=== PATIENT | female | born 1945 | race Caucasian/White ===

== ENCOUNTER → 2017-12-26 12:57 | Outpatient (CLI) | payer MEDICARE, OTHER, SELFPAY ==
--- NOTE | 2017-12-26 | DI.MG.S_ITS ---
BILATERAL DIGITAL DIAGNOSTIC MAMMOGRAM: 12/26/2017 CLINICAL: Diffuse left breast pain. Family history of breast cancer. Comparison is made to exams dated: 11/25/2016 mammogram, 11/24/2015 mammogram, and 11/19/2014 mammogram - [facility]. There are scattered fibroglandular elements in both breasts. No significant masses, calcifications, or other findings are seen in either breast. IMPRESSION: NEGATIVE There is no abnormality seen in either breast to correspond with the patient's diffuse bilateral breast pain, however, clinical followup is recommended. There is no mammographic evidence of malignancy. A 1 year screening mammogram is recommended. This exam was interpreted at Station ID: [id number]. NOTE: For mammograms, a report in lay terms will be sent to the patient. Approximately 15% of breast malignancies will not be visualized mammographically. In the management of a palpable breast mass, a negative mammogram must not discourage biopsy of a clinically suspicious lesion. Electronically Signed By: Bruce cox/:12/26/2017 14:24:45 letter sent: Clinical Evaluation ACR BI-RADS Category 1: Negative 3341F
== END ==
PROVIDERS: Family Provider Family Medicine; Visit Provider Family Medicine
DX: N64.4 Mastodynia (principal); Z80.3 Family history of malignant neoplasm of breast
CPT/HCPCS: 77066; G0279

== ENCOUNTER → 2018-08-23 11:03 | Outpatient (CLI) | payer MEDICARE, OTHER, SELFPAY ==
--- NOTE | 2018-08-23 | DI.RAD.S_ITS ---
PROCEDURE: XR KNEE RT 3V INDICATIONS: PAIN IN RIGHT KNEE TECHNIQUE: 3 views of the knee were acquired. COMPARISON: [facility], , KNEE 3V RIGHT, 09/10/2008, 16:14. FINDINGS: Bones: No fractures or dislocations. No suspicious bony lesions. Soft tissues: No joint effusion. No suspicious soft tissue calcifications. There is a soft tissue density over the medial aspect of the knee, new since the last x-ray on 09/10/2008. IMPRESSION: A soft tissue density over the medial aspect of the knee new since the last exam. If clinical symptoms persist or clinical suspicion for internal derangement is high, MRI is suggested for further evaluation. Dictated by: Edward Mondragon M.D. on 08/23/2018 at 14:31 Approved by: Edward Mondragon M.D. on 08/23/2018 at 14:34
== END ==
PROVIDERS: PCP Family Medicine; Visit Provider Family Medicine
DX: M25.561 Pain in right knee (principal)
CPT/HCPCS: 73562

== ENCOUNTER → 2019-02-04 12:44 | Outpatient (CLI) | payer MEDICARE, OTHER, SELFPAY ==
--- NOTE | 2019-02-04 12:49 | DI.MG.S_ITS ---
BILATERAL DIGITAL SCREENING MAMMOGRAM 3D/2D WITH CAD: 02/04/2019 CLINICAL: Routine screening. Family history of breast cancer. Comparison is made to exams dated: 12/26/2017 mammogram, 11/25/2016 mammogram, 11/24/2015 mammogram, and 11/19/2014 mammogram - [facility]. There are scattered fibroglandular elements in both breasts. Current study was also evaluated with a Computer Aided Detection (CAD) system. No significant masses, calcifications, or other findings are seen in either breast. There has been no significant interval change. IMPRESSION: NEGATIVE There is no mammographic evidence of malignancy. A 1 year screening mammogram is recommended. This exam was interpreted at Station ID: [id number]. NOTE: For mammograms, a report in lay terms will be sent to the patient. Approximately 15% of breast malignancies will not be visualized mammographically. In the management of a palpable breast mass, a negative mammogram must not discourage biopsy of a clinically suspicious lesion. Electronically Signed By: Juan Francisco peres/mallory:02/04/2019 18:41:40 letter sent: Normal Exam ACR BI-RADS Category 1: Negative 3341F
== END ==
PROVIDERS: Visit Provider Student in an Organized Health Care Education/Training Program
DX: Z12.31 Encounter for screening mammogram for malignant neoplasm of breast (principal); Z80.3 Family history of malignant neoplasm of breast
CPT/HCPCS: 77063; 77067

== ENCOUNTER 2019-02-20 18:09 | Emergency (ER) | payer MEDICARE, OTHER, SELFPAY ==
[2019-02-20 18:11] VITALS: BP 135/68; PULSE 70; RESP 18; TEMP 36.9; O2SAT 17
--- NOTE | 2019-02-20 18:54 | ED.WEAKNESS ---
HPI - Weakness General Chief complaint: Weakness Stated complaint: Weakness Time Seen by Provider: 02/20/19 18:12 Source: patient Mode of arrival: ambulatory Limitations: no limitations History of Present Illness HPI Narrative: Patient comes emergency department via EMS after being stuck at [facility] for several hours this afternoon, waiting for a tow truck, after her car broke down. Patient states that she has chronic dizziness and imbalance, secondary to inner ear issues and cochlear implants. She states that when she got out of her car, she has lost her balance and fell to the ground. She states she did not hurt her extremities. She did bump her head, but does not think that she lost consciousness. Patient denies any nausea or vomiting. She states she feels a little lightheaded at this time. No chest pain or shortness of breath. Patient waited for several hours in the toe tract did not show up, and finally, a ranger came along and was concerned about the patient being stuck in the hot weather in her car and called EMS. Patient does note that she did not drink any water this afternoon, because she did not have any bathroom available, should she need to relieve herself. Patient states she was feeling fine when she got up this morning. Patient states she is under lot of stress lately because her of 50 years left her for her best friend. She states that she has not been able to get a hold of anybody to help her, though she has left messages. Related Data Home Medications Medication Instructions Recorded Confirmed [CALTRATE] 500 mg PO QDAY #0 01/21/10 10/02/18 [NEERAJ-C] 500 mg PO QDAY #0 01/21/10 10/02/18 [FISH OIL] 1,000 mg PO TID #0 01/21/10 10/02/18 MULTIVITAMIN (Multivitamin 1 cap PO EVERY DAY #0 01/25/10 10/02/18 -) [GLUCOSAMINE] 1,500 mg PO QDAY #0 01/25/10 10/02/18 mirabegron [Myrbetriq] 50 mg PO #0 06/24/17 10/02/18 estradiol [Estrace] 0.01 % VAGINAL HS #0 07/25/17 10/02/18 ibandronate [Boniva] 150 mg OR QMONTH #0 07/25/17 10/02/18 Lactobacillus acidophilus capsule 100 mg PO DAILY 03/21/18 10/02/18 cholecalciferol (vitamin D3) 2,000 2,000 unit PO DAILY 03/21/18 10/02/18 unit capsule levothyroxine 75 mcg tablet 75 mcg PO DAILY 03/21/18 10/02/18 valacyclovir 500 mg tablet 1,000 mg PO DAILY 10/02/18 10/02/18 Previous Rx's Medication Instructions Recorded bupropion HCl XL 300 mg 24 hr 300 mg PO AMCC #90 tab 06/20/18 tablet, extended release lamotrigine 200 mg tablet 200 mg PO DAILY #90 tab 06/20/18 trazodone 50 mg tablet 100 mg PO HS #180 tab 06/20/18 hydroxyzine HCl 25 mg tablet 25 mg PO BEDTIME PRN #90 tab 10/24/18 Allergies Allergy/AdvReac Type Severity Reaction Status Date / Time No Known Drug Allergies Allergy Unverified 10/24/18 10:54 Review of Systems Constitutional Denies chills, Denies fever(s), Denies lethargy and Denies weakness Eyes Denies change in vision, Denies eye discharge, Denies irritation and Denies loss of vision ENT Ears, Nose, Mouth, and Throat: Denies change in voice, Denies neck pain and Denies sore throat Cardiovascular Denies chest pain, Denies irregular heart rhythm, Reports lightheadedness, Denies palpitations, Denies dyspnea, Denies dyspnea on exertion and Denies orthopnea Respiratory Denies cough, Denies dyspnea, Denies dyspnea on exertion and Denies wheezing Gastrointestinal Gastrointestinal: Denies abdominal pain, Denies change in bowel habits, Denies diarrhea, Denies nausea and Denies vomiting Genitourinary Denies hematuria, Denies flank pain, Denies urinary incontinence and Denies urinary urgency Musculoskeletal Denies neck pain Integumentary/Breasts Denies pruritus, Denies erythema, Denies rash and Denies wounds Neurologic Denies confusion, Denies loss of vision and Denies weakness Psychiatric Denies anxiety, Denies confusion, Denies depression, Denies homicidal ideation and Denies suicidal ideation Endocrine Denies palpitations Hematologic/Lymphatic Denies easy bruising Allergic/Immunologic Denies wheezing [facility] Medical History Herpes (Chronic) Hypothyroidism (Chronic) Bipolar II disorder (Chronic) Social History Smoking Status: Never smoker Social History Smoking Status: Never smoker Exam Initial Vital Signs Initial Vital Signs: Vital Signs Temperature 98.4 F 02/20/19 18:11 Pulse Rate 70 02/20/19 18:11 Respiratory Rate 18 02/20/19 18:11 Blood Pressure 135/68 02/20/19 18:11 Pulse Oximetry 17 L 02/20/19 18:11 Const General: cooperative and well developed Nutritional Appearance: well nourished Orientation: alert, awake, oriented x3 and not confused HENMA Head: normocephalic and atraumatic Ears: external ears normal Nose: external nose normal and No nasal discharge Face and sinus: face symmetric and No dry mucous membranes Mouth: oral mucosae normal and moist mucous membranes Teeth and gingiva: dentition normal Eyes General: appearance normal, both eyes and all related structures Eyelids: eyelids normal Conjunctivae: conjunctivae normal Sclera: sclerae normal Pupils: PERRL EOM: EOM intact bilaterally Neck Neck: normal visual inspection, trachea midline, No lymphadenopathy, No midline deformity and No JVD Lymphatic: No lymphedema Chest Chest: normal inspection of the chest Resp Effort & Inspection: normal respiratory effort, able to speak in complete sentences, no respiratory distress and no use of accessory muscles Auscultation: clear to auscultation bilaterally, no rales, no rhonchi and no wheezes Cardio Rate: regular rate Rhythm: regular rhythm Heart Sounds: no click, no gallops, no murmurs and no rubs Pulses: normal peripheral pulses GI Inspection: non-distended Palpation: soft, no hepatosplenomegaly, No guarding, No pulsatile mass and No tender Auscultation: normal bowel sounds Back/Spine/Pelvis Back: No CVA tenderness Cervical Spine: cervical ROM normal and No pain with cervical ROM Thoracic/Lumbar Spine: thoracic and lumbar spine normal to inspection Skin General: no rashes or lesions noted, No jaundice and No petechiae Neuro General: alert, oriented x3, gait normal and no focal motor deficits Speech: speech normal Extrem General: full ROM, no clubbing, cyanosis or edema, no pedal edema and no calf tenderness Psych Appearance: well kempt Mental Status: mental status grossly normal Attitude: cooperative Thought Content: normal and suicidality Judgment: judgment good Course Course Narrative: The patient was treated with IV fluids, after which she reported feeling much much better. The patient did not have any other complaints and had not been ill in any way, and I did not feel further, more extensive workup was indicated. The patient has had no deterioration whatsoever while in the emergency department. We discussed home fluid intake, as well as the usual indications for return or follow-up. Orders Ordered: Discontinued Medications Sodium Chloride (Normal Saline 0.9%) 1,000 mls @ 1,000 mls/hr IV BOLUS ONE Stop: 02/20/19 19:40 Last Infusion: 02/20/19 20:50 Dose: 0 mls/hr Admin: 02/20/19 19:05 Dose: 1,000 mls/hr Vital Signs - 8 hr 02/20/19 18:11 Temperature 98.4 F Pulse Rate 70 Respiratory Rate 18 Blood Pressure 135/68 Pulse Oximetry 17 L MDM - Weakness Medical Records Attestation: I reviewed the patient's medical records. Discharge Plan Departure Patient Disposition: Home Clinical Impression: Dehydration Discharge Date/Time: 02/20/19 21:25 Interventions: ED Discharge Assessment Last Done: 02/20/19 21:24 Instructions: DI for Dehydration -- Adult Prescriptions: No Action levothyroxine [Levoxyl] 75 mcg tablet 75 mcg PO DAILY RF: 0 Lactobacillus acidophilus [Acidophilus] capsule 100 mg PO DAILY RF: 0 cholecalciferol (vitamin D3) 2,000 unit capsule 2,000 unit PO DAILY RF: 0 bupropion HCl [Wellbutrin XL] 300 mg tablet extended release 24 hr 300 mg PO AMCC Qty: 90 RF: 3 lamotrigine 200 mg tablet 200 mg PO DAILY Qty: 90 RF: 3 trazodone 50 mg tablet 100 mg PO HS Qty: 180 RF: 3 hydroxyzine HCl 25 mg tablet 25 mg PO BEDTIME PRN (Reason: insomnia) Qty: 90 RF: 3 [NEERAJ-C] 500 mg PO QDAY Qty: 0 RF: 0 [CALTRATE] 500 mg PO QDAY Qty: 0 RF: 0 [FISH OIL] 1,000 mg PO TID Qty: 0 RF: 0 MULTIVITAMIN (Multivitamin -) 1 cap PO EVERY DAY Qty: 0 RF: 0 [GLUCOSAMINE] 1,500 mg PO QDAY Qty: 0 RF: 0 mirabegron [Myrbetriq] 50 MG tablet extended release 24 hr 50 mg PO Qty: 0 RF: 0 ibandronate [Boniva] 150 MG tablet 150 mg OR QMONTH Qty: 0 RF: 0 estradiol [Estrace] 0.01 % cream 0.01 % Vaginal HS Qty: 0 RF: 0 valacyclovir 500 mg tablet 1,000 mg PO DAILY RF: 0 Referrals: [facility] [Provider Group]
[2019-02-20 19:00] VITALS: BP 141/66; PULSE 63; O2SAT 100
[2019-02-20] MEDS: SODIUM CHLORIDE 0.9% 1,000 ML 1000 ML IV (19:05)
[2019-02-20 21:19] VITALS: BP 156/64; PULSE 66; RESP 17; O2SAT 100
== END 2019-02-20 21:25 | disposition home or self-care (01) ==
PROVIDERS: Emergency Provider Emergency Medicine
DX: E86.0 Dehydration (principal)
CPT/HCPCS: 36591; 96360; 96361; 99283; 99284

== ENCOUNTER → 2019-09-12 14:08 | Outpatient (CLI) | payer MEDICARE, OTHER, SELFPAY ==
--- NOTE | 2019-09-12 | DI.RAD.S_ITS ---
PROCEDURE: XR LUMBAR SPINE 2-3V INDICATIONS: LBP, LEFT HIP PAIN WITH RADICULOPATHY TECHNIQUE: 2 views of the lumbar spine were acquired. COMPARISON: None. FINDINGS: Bones: No fracture or focal osseous destruction. However, evaluation limited by severe spondylitic changes. Multilevel degenerative endplate sclerosis and spurring. Diffuse facet arthropathy. Grade 1 retrolisthesis of L2 on L3, and L4 on L5. Grade 1 anterolisthesis of L5 on S1. Severe diffuse narrowing of the lumbar disc spaces. Levoscoliosis noted centered at L2. Soft tissues: Overlying bowel gas pattern is normal. No suspicious soft tissue calcifications. IMPRESSION: Levoscoliosis and severe lumbar spondylosis, and facet arthropathy Multilevel spondylolisthesis as above. Dictated by: Benitez Gomez M.D. on 09/12/2019 at 15:49 Approved by: Benitez Gomez M.D. on 09/12/2019 at 15:51
--- NOTE | 2019-09-12 | DI.RAD.S_ITS ---
PROCEDURE: XR HIP W PEL IF DONE LT MIN 4V INDICATIONS: LBP, LEFT HIP PAIN WITH RADICULOPATHY TECHNIQUE: AP pelvis with lateral view(s) of the right and left hip(s). COMPARISON: [facility], CT, CHEST ABDOMEN PELVIS WITH CONTRAST, 07/11/2008, 10:37. FINDINGS: Bones: No fractures or dislocations. Pelvic ring appears intact. Nonspecific 1 cm sclerotic lesion projecting in the left intertrochanteric femur, which was present on 07/11/08. Lower lumbar spondylosis. Sacroiliac joints grossly intact. Mild bilateral hip degeneration. Soft tissues: The visualized bowel gas pattern is normal. No suspicious soft tissue calcifications. IMPRESSION: Mild bilateral hip degeneration. Lower lumbar spondylosis and facet disease. Dictated by: Benitez Gomez M.D. on 09/12/2019 at 15:43 Approved by: Benitez Gomez M.D. on 09/12/2019 at 15:49
== END ==
PROVIDERS: Referring Provider Student in an Organized Health Care Education/Training Program; Visit Provider Student in an Organized Health Care Education/Training Program
DX: M54.5 Low back pain (principal); M25.552 Pain in left hip; M47.26 Other spondylosis with radiculopathy, lumbar region; M16.0 Bilateral primary osteoarthritis of hip; M43.16 Spondylolisthesis, lumbar region; M43.17 Spondylolisthesis, lumbosacral region; M41.86 Other forms of scoliosis, lumbar region
CPT/HCPCS: 72100; 73522

== ENCOUNTER → 2019-09-26 11:09 | Outpatient (CLI) | payer MEDICARE, OTHER, SELFPAY ==
--- NOTE | 2019-09-26 | DI.CT.S_ITS ---
PROCEDURE: CT LUMBAR SPINE WO CON INDICATIONS: Radiculopathy, lumbar region TECHNIQUE: Noncontrast 3 mm thick sections acquired from the T12 level to the sacrum. Sagittal and coronal reformats were constructed. For radiation dose reduction, the following was used: automated exposure control. COMPARISON: , CT, CHEST ABDOMEN PELVIS WITH CONTRAST, 07/11/2008, 10:37. , CR, XR LUMBAR SPINE 2-3V, 09/12/2019, 14:22. FINDINGS: Image quality: Excellent. Bones: No acute vertebral body compression fractures. Several chronic appearing Schmorl's nodes are seen. No suspicious lytic or blastic bony lesions. Central spinal caliber is of normal overall caliber. No pars defects. Mild levoconvex scoliotic curvature is noted. Mild retrolisthesis is seen at the L2-L3 level. Minimal retrolisthesis is seen at L4-L5. T12-L1: No significant abnormality is seen. L1-L2: Telq-[id number]-[id number] loss of disc height is seen. Mild to moderate disc bulge is seen, with a mild central disc protrusion. Minimal bilateral neural foraminal narrowing is seen. Mild central canal narrowing is seen. L2-L3: At least moderate loss of disc height is seen. Vacuum disc phenomenon is seen at this level. Endplate irregularity and sclerosis can be seen, particularly on the right side. At least moderate disc bulge is seen. There is a central disc protrusion seen. Mild facet joint hypertrophy is seen. There is at least moderate right-sided and moderate left-sided neural foraminal narrowing seen. Moderate central canal narrowing is seen. L3-L4: Moderate loss of disc height is seen. Vacuum disc phenomenon is seen at this level. At least moderate disc bulge is seen, which is eccentric to the right. There is a central disc protrusion seen. There is at least moderate bilateral neural foraminal narrowing seen. Moderate to severe central canal narrowing is seen, as on series 3 image 45. L4-L5: Moderate to severe loss of disc height is seen. At least moderate disc bulge is seen, which is eccentric to the left. Endplate irregularity and sclerosis can be seen. Posteriorly projected endplate osteophytes are seen. Mild facet joint hypertrophy is seen. At least moderate bilateral neural foraminal narrowing can be seen. Mild to moderate central canal narrowing is seen. L5-S1: The disc height is well preserved. Mild generalized disc bulge is seen. Moderate to prominent facet hypertrophy is seen. There is at least moderate bilateral neural foraminal narrowing seen. At least moderate central canal narrowing is seen, as on series 3 image 61. Soft tissues: No retroperitoneal masses or hematomas. Visualized aorta is normal in caliber. Cholecystectomy clips are seen. IMPRESSION: Multiple levels of relatively prominent lumbar spine degenerative change are seen. Levoconvex scoliosis. Cholecystectomy clips noted. Dictated by: Cornell Sun M.D. on 09/26/2019 at 11:15 Approved by: Cornell Sun M.D. on 09/26/2019 at 11:20
== END ==
PROVIDERS: PCP Student in an Organized Health Care Education/Training Program; Referring Provider Student in an Organized Health Care Education/Training Program; Visit Provider Student in an Organized Health Care Education/Training Program
DX: M47.26 Other spondylosis with radiculopathy, lumbar region (principal); M41.9 Scoliosis, unspecified
CPT/HCPCS: 72131

== ENCOUNTER → 2020-01-14 10:08 | Outpatient (CLI) | payer MEDICARE, OTHER, SELFPAY | PROVIDERS: PCP Student in an Organized Health Care Education/Training Program; Referring Provider Student in an Organized Health Care Education/Training Program; Visit Provider Student in an Organized Health Care Education/Training Program | DX: M81.0 Age-related osteoporosis without current pathological fracture (principal); Z78.0 Asymptomatic menopausal state; E07.9 Disorder of thyroid, unspecified | CPT/HCPCS: 77080 ==

== ENCOUNTER → 2020-02-06 10:18 | Outpatient (CLI) | payer MEDICARE, OTHER, SELFPAY ==
--- NOTE | 2020-02-06 | DI.MG.S_ITS ---
BILATERAL DIGITAL SCREENING MAMMOGRAM 3D/2D WITH CAD: 02/06/2020 CLINICAL: Routine screening. Family history of breast cancer. Comparison is made to exams dated: 02/04/2019 mammogram, 12/26/2017 mammogram, and 11/25/2016 mammogram - [facility]. There are scattered fibroglandular elements in both breasts. Current study was also evaluated with a Computer Aided Detection (CAD) system. No significant masses, calcifications, or other findings are seen in either breast. There has been no significant interval change. IMPRESSION: NEGATIVE There is no mammographic evidence of malignancy. A 1 year screening mammogram is recommended. This exam was interpreted at Station ID: [id number]. NOTE: For mammograms, a report in lay terms will be sent to the patient. Approximately 15% of breast malignancies will not be visualized mammographically. In the management of a palpable breast mass, a negative mammogram must not discourage biopsy of a clinically suspicious lesion. Electronically Signed By: Trung coyne/mallory:02/06/2020 16:58:36 letter sent: Normal Exam ACR BI-RADS Category 1: Negative 3341F
== END ==
PROVIDERS: PCP Student in an Organized Health Care Education/Training Program; Referring Provider Student in an Organized Health Care Education/Training Program; Visit Provider Student in an Organized Health Care Education/Training Program
DX: Z12.31 Encounter for screening mammogram for malignant neoplasm of breast (principal); Z80.3 Family history of malignant neoplasm of breast
CPT/HCPCS: 77063; 77067

== ENCOUNTER → 2020-02-11 14:24 | Outpatient (CLI) | payer MEDICARE, OTHER, SELFPAY ==
[2020-02-11 15:40] LABS: BUN Creatinine Ratio 27.9 (6-22); Blood Urea Nitrogen 29 mg/dL (7-17); Estimated Glomerular Filt Rate 51.8 mL/min (>60)
== END ==
PROVIDERS: PCP Student in an Organized Health Care Education/Training Program; Referring Provider Physical Medicine & Rehabilitation; Visit Provider Physical Medicine & Rehabilitation
DX: Z01.818 Encounter for other preprocedural examination (principal); Z01.812 Encounter for preprocedural laboratory examination; M54.16 Radiculopathy, lumbar region
CPT/HCPCS: 36415; 82565; 84520

== ENCOUNTER → 2020-02-17 14:18 | Outpatient (CLI) | payer MEDICARE, OTHER, SELFPAY ==
--- NOTE | 2020-02-17 | DI.CT.S_ITS ---
PROCEDURE: CT LE LT W CON INDICATIONS: Localized swelling, mass and lump, left lower limb TECHNIQUE: After the administration of intravenous contrast, 3 mm axial sections acquired of the left femur, with coronal and sagittal reformats. COMPARISON: [facility], CT, CHEST ABDOMEN PELVIS WITH CONTRAST, 07/11/2008, 10:37. [facility], CR, XR HIP W PEL IF DONE [place] 3TO4V, 09/12/2019, 14:22. FINDINGS: Image quality: Excellent. No fracture or focal osseous destruction. Mixed lytic and sclerotic lesion seen within the intertrochanteric left femur is unchanged dating back to prior comparison study from 07/11/08. Therefore, this is considered benign. There is somewhat masslike focus present in the left lateral hip subcutaneous fat, although no discrete margins are seen. Roughly this measures 7 x 3 cm. Chronic sequela from proximal left hamstring origin tendinopathy. IMPRESSION: Mass like appearance involving the left hip lateral subcutaneous fat possibly lipoma although recommend clinical correlation and management since this is technically indeterminate. Dictated by: Benitez Gomez M.D. on 02/17/2020 at 16:02 Approved by: Benitez Gomez M.D. on 02/17/2020 at 16:12
== END ==
PROVIDERS: PCP Student in an Organized Health Care Education/Training Program; Referring Provider Student in an Organized Health Care Education/Training Program; Visit Provider Physical Medicine & Rehabilitation
DX: R22.42 Localized swelling, mass and lump, left lower limb (principal)
CPT/HCPCS: 73701; Q9967

== ENCOUNTER → 2020-03-12 12:55 | Outpatient (CLI) | payer MEDICARE, OTHER, SELFPAY ==
--- NOTE | 2020-03-12 | DI.RAD.S_ITS ---
PROCEDURE: XR RIBS LT MIN 3V W CXR1V INDICATIONS: Pleurodynia TECHNIQUE: 2 views of the left ribs were acquired, along with a single view chest. COMPARISON: None. FINDINGS: Surgical changes and devices: None. Bones and chest wall: No fractures or dislocations. Healed posterior left rib fracture is noted. No suspicious bony lesions. Overlying soft tissues appear unremarkable. Lungs and pleura: No pleural effusions or pneumothorax. Lungs appear clear. Mediastinum: Mediastinal contours appear normal. Heart size is normal. IMPRESSION: No acute displaced rib fractures. Dictated by: Nelsy Mcdaniel M.D. on 03/12/2020 at 14:41 Approved by: Nelsy Mcdaniel M.D. on 03/12/2020 at 14:44
== END ==
PROVIDERS: PCP Student in an Organized Health Care Education/Training Program; Referring Provider Physician Assistant Medical; Visit Provider Physician Assistant Medical
DX: R07.81 Pleurodynia (principal)
CPT/HCPCS: 71101

== ENCOUNTER → 2021-02-08 10:19 | Outpatient (CLI) | payer MEDICARE, OTHER, SELFPAY ==
--- NOTE | 2021-02-08 | DI.MG.S_ITS ---
BILATERAL DIGITAL SCREENING MAMMOGRAM 3D/2D WITH CAD: 02/08/2021 CLINICAL: Routine screening. Comparison is made to exams dated: 02/06/2020 mammogram, 02/04/2019 mammogram, and 12/26/2017 mammogram - [facility]. There are scattered fibroglandular elements in both breasts. Current study was also evaluated with a Computer Aided Detection (CAD) system. No significant masses, calcifications, or other findings are seen in either breast. There has been no significant interval change. IMPRESSION: NEGATIVE There is no mammographic evidence of malignancy. A 1 year screening mammogram is recommended. This exam was interpreted at Station ID: [id number]. NOTE: For mammograms, a report in lay terms will be sent to the patient. Approximately 15% of breast malignancies will not be visualized mammographically. In the management of a palpable breast mass, a negative mammogram must not discourage biopsy of a clinically suspicious lesion. Electronically Signed By: Constantino Alcantara M.D. at/mallory:02/08/2021 10:42:43 letter sent: Normal Exam ACR BI-RADS Category 1: Negative 3341F
== END ==
PROVIDERS: PCP Student in an Organized Health Care Education/Training Program; Referring Provider Student in an Organized Health Care Education/Training Program; Visit Provider Student in an Organized Health Care Education/Training Program
DX: Z12.31 Encounter for screening mammogram for malignant neoplasm of breast (principal)
CPT/HCPCS: 77063; 77067

== ENCOUNTER 2021-02-08 10:56 | Emergency (ER) | payer MEDICARE, OTHER, SELFPAY ==
[2021-02-08 11:23] VITALS: BP 138/63; PULSE 65; RESP 16; TEMP 36.8; O2SAT 95; BMI 19.5
--- NOTE | 2021-02-08 11:36 | DI.CT.S_ITS ---
PROCEDURE: CT KIDNEY URETER BLADDER (KUB) INDICATIONS: acute urinary retention ? obstructive uropathy TECHNIQUE: Axial sections were acquired from the lung bases to the pubic symphysis. Coronal and sagittal reformats were performed. For radiation dose reduction, the following was used: automated exposure control, adjustment of mA and/or kV according to patient size. COMPARISON:None. FINDINGS: Image quality: Excellent. Lung bases: Unremarkable. Heart: No significant findings. URINARY: Right Kidney: Numerous tiny parenchymal calcifications. 3 mm middle pole stone. No hydronephrosis. Right Ureter: No hydroureter. Left Kidney: Multiple subtle parenchymal calcifications. No calyceal stones. No hydronephrosis. Left Ureter: Unremarkable Bladder: Bladder is decompressed by a Garcia catheter. ABDOMEN: Liver: Unremarkable. Gallbladder: Surgically absent Biliary ducts: Unremarkable. Pancreas: Unremarkable. Spleen: Unremarkable. Adrenal Glands: Unremarkable. Large amount of fecal debris. Stomach and Bowel: Stomach, small bowel loops, and colon are unremarkable. Large amount of fecal debris. Peritoneum: No abnormal intraperitoneal fluid. No free air. Ventral Wall: No hernia. Abdominal Nodes: No enlarged retroperitoneal or mesenteric lymph nodes. Vessels: Aorta and inferior vena cava are normal in size. PELVIS: Pelvic Organs: Uterus is surgically absent. Pelvic Nodes: Unremarkable. Miscellaneous: No inguinal hernias are seen. Bones: Diffuse lumbar degenerative change IMPRESSION: 1. No evidence of hydronephrosis. 2. Subtle bilateral multifocal renal cortical calcifications. 3. Small nonobstructing right renal stone. 4. Bladder is decompressed by a Garcia catheter. 5. Large fecal load. Dictated by: Leo Laguerre M.D. on 02/08/2021 at 12:44 Approved by: Leo Laguerre M.D. on 02/08/2021 at 12:58
[2021-02-08 11:55] LABS: RBC Urine None Seen (0-5/HPF)
[2021-02-08 12:00] LABS: Appearance Urine UA CLEAR; Bilirubin Urine UA NEGATIVE (NEGATIVE); Color Urine UA ORANGE; Glucose Urine UA TRACE g/dL (Negative); Ketones Urine UA NEGATIVE (NEGATIVE); Leukocyte Esterase Urine UA TRACE (NEGATIVE); Nitrite Urine UA POSITIVE (Negative); Occult Blood Urine UA NEGATIVE (Negative); Protein Urine UA 1+ (Negative); Specific Gravity Urine UA 1.015 (1.000-1.035)
[2021-02-08 12:07] LABS: pH Urine UA 5.5 (4.5-8.0)
[2021-02-08 12:09] LABS: Bacteria Urine Few (2-10); Culture Indicated Urine Specimen Cultured; WBC Urine 1-5/HPF (0-5/HPF)
[2021-02-08 13:36] LABS: Add Manual Diff / Slide Review NO; Basophils Absolute Auto 0 /uL (0-100); Basophils Percent Auto 0.3 % (0-2); Eosinophils Absolute Auto 100 /uL (0-450); Eosinophils Percent Auto 2.3 % (2-4); Hemoglobin 12.2 g/dL (12.0-16.0); Lymphocytes Absolute Auto 1300 /uL (1100-4500); Lymphocytes Percent Auto 25.4 % (25-40); Mean Corpuscular HGB Conc 33.1 % (30-36); Mean Corpuscular Hemoglobin 33.3 PG (26-34); Mean Corpuscular Volume 100.6 fL (80-100); Monocytes Absolute Auto 300 /uL (0-900); Monocytes Percent Auto 6.2 % (3-14); Neutrophils Absolute Auto 3400 /uL (1500-7000); Neutrophils Percent Auto 65.8 % (50-75); Platelet Count 190 X10^3/uL (150-400); Red Blood Cell Count 3.68 X10^6/uL (4.0-5.2); Red Cell Distribution Width 12.9 % (11.6-14.8); White Blood Cell Count 5.2 X10^3/uL (4.5-11.0)
[2021-02-08 13:51] LABS: Alanine Aminotransferase 25 IU/L (<35); Albumin 3.9 g/dL (3.5-5.0); Albumin Globulin Ratio 1.4 (1.0-2.8); Alkaline Phosphatase 76 U/L (38-126); Aspartate Aminotransferase 33 IU/L (14-36); BUN Creatinine Ratio 25.2 (6-22); Bilirubin Total 0.4 mg/dL (0.2-1.3); Blood Urea Nitrogen 27 mg/dL (7-17); Carbon Dioxide 30 mmol/L (22-32); Chloride 105 mmol/L (98-107); Globulin 2.7 g/dL (1.7-4.1); Glucose 89 mg/dL (80-110); HEMOLYSIS < 15 (0-50); Potassium 4.2 mmol/L (3.4-5.1); Sodium 140 mmol/L (137-145); Total Protein 6.6 g/dL (6.3-8.2)
--- NOTE | 2021-02-08 13:51 | ED_ITS ---
HPI - Female Genitourinary General Chief complaint: Urogenital-Female Stated complaint: hasn't urinated for 1+ days Time Seen by Provider: 02/08/21 13:19 Source: patient Mode of arrival: Ambulatory History of Present Illness HPI Narrative: This is a 75-year-old who states she has had urinary retention the past 2 days. She was seen yesterday had her bladder drained but had the Garcia catheter removed. Patient states she has had urinary frequency particularly at night. She soft urology and has been monitoring her output. She has had decreasing amount of output over time. Patient denies any fevers. No abdominal pain, no back or flank pain. She does have chronic constipation and takes Ex-Lax once weekly but has small stools. Patient was told she had a UTI she was given a prescription for 250 mg Cipro p.o. b.i.d. for 3 days as well as Pyridium which she has completed. She returns today unable to empty her bladder. Patient has not had similar symptoms in the past. She has already established with Urology here locally. Related Data Home Medications Medication Instructions Recorded Confirmed [CALTRATE] 500 mg PO QDAY #0 01/21/10 01/29/21 [NEERAJ-C] 500 mg PO QDAY #0 01/21/10 01/29/21 [FISH OIL] 1,000 mg PO TID #0 01/21/10 01/29/21 MULTIVITAMIN (Multivitamin 1 cap PO EVERY DAY #0 01/25/10 01/29/21 -) [GLUCOSAMINE] 1,500 mg PO QDAY #0 01/25/10 01/29/21 mirabegron 50 mg tablet,extended 50 mg PO #0 06/24/17 01/29/21 release 24 hr (Myrbetriq) estradiol (Estrace) 0.01 % VAGINAL HS #0 07/25/17 01/29/21 ibandronate 150 mg tablet (Boniva) 150 mg OR QMONTH #0 07/25/17 01/29/21 Lactobacillus acidophilus 100 mg PO DAILY 03/21/18 01/29/21 (Acidophilus) cholecalciferol (vitamin D3) 50 2,000 unit PO DAILY 03/21/18 01/29/21 mcg (2,000 unit) capsule levothyroxine 75 mcg tablet 75 mcg PO DAILY 03/21/18 01/29/21 (Levoxyl) atorvastatin 10 mg tablet 10 mg PO DAILY tab 01/29/21 01/29/21 solifenacin 10 mg tablet 10 mg PO DAILY tab 01/29/21 01/29/21 valacyclovir 1 gram tablet 1,000 mg PO DAILY tab 01/29/21 01/29/21 Previous Rx's Medication Instructions Recorded hydroxyzine HCl 25 mg tablet 25 mg PO BEDTIME PRN #90 tab 05/12/20 bupropion HCl 300 mg 24 hr tablet, 300 mg PO QAM #90 tab 09/07/20 extended release lamotrigine 200 mg tablet 200 mg PO DAILY #90 tab 09/07/20 trazodone 50 mg tablet 100 mg PO HS #210 tab 09/07/20 cephalexin 500 mg capsule 500 mg PO BID 7 Days #14 cap 02/08/21 docusate sodium 100 mg capsule 100 mg PO DAILY PRN #20 cap 02/08/21 (Colace) tamsulosin 0.4 mg capsule (Flomax) 0.4 mg PO DAILY #10 cap 02/08/21 Allergies Allergy/AdvReac Type Severity Reaction Status Date / Time No Known Drug Allergies Allergy Verified 01/29/21 12:50 Review of Systems Review of Systems ROS Unobtainable: All systems reviewed & are unremarkable except as noted in HPI and below Patient History Medical History Atrophic vaginitis Bilateral sensorineural hearing loss Bipolar II disorder Cataract fragments in left eye following surgery Cochlear implant in place Herpes Hypothyroidism Insomnia Nocturia Urgency incontinence Surgical History H/O: hysterectomy History of bladder suspension procedure History of cholecystectomy History of hysterectomy Hx of breast reduction, elective alcohol intake frequency: other Substance Use Type: does not use Exam Narrative Exam Narrative: GENERAL: Alert and oriented x three, thin female in mild distress. HEENT: Head normocephalic, atraumatic, EOMI, pupils reactive, face symmetric, moist mucous membranes NECK: Supple, full range of motion CARDIOVASCULAR: Regular rate and rhythm without murmurs, rubs or gallops. RESPIRATORY: Breath sounds equal bilaterally, no wheezes rales or rhonchi. ABDOMEN: Soft, nontender. Normoactive bowel sounds all 4 quadrants. No guarding or rebound, rigidity, no mass. : No CVA tenderness. Patient has Garcia catheter draining yellow urine. EXTREMITIES: Normal range of motion, no clubbing or edema. Neurovascularly intact NEUROLOGICAL: Cranial nerves II through XII grossly intact. Moving all extremities SKIN: Warm, dry, no petechiae, no rashes or lesions. Initial Vital Signs Initial Vital Signs: Vital Signs Temperature 98.3 F 02/08/21 11:23 Pulse Rate 65 02/08/21 11:23 Respiratory Rate 16 02/08/21 11:23 Blood Pressure 138/63 02/08/21 11:23 Pulse Oximetry 95 02/08/21 11:23 Course Orders Ordered: ED Orders 02/08/21 11:36 CT kidney ureter bladder (KUB) Stat 02/08/21 11:50 Urinalysis and Microscopic Stat Urine Culture Stat 02/08/21 13:32 Complete Blood Count AUTO DIFF Stat Comprehensive Metabolic Panel Stat Vital Signs Vital signs: Vital Signs - 8 hr 02/08/21 11:23 Temperature 98.3 F Pulse Rate 65 Respiratory Rate 16 Blood Pressure 138/63 Pulse Oximetry 95 MDM - Female Genitourinary Lab Data Result diagrams: 02/08/21 13:32 02/08/21 13:32 Labs: Lab Results 02/08/21 02/08/21 02/08/21 Range/Units 11:50 13:32 13:32 WBC 5.2 (4.5-11.0) X10^3/uL RBC 3.68 L (4.0-5.2) X10^6/uL Hgb 12.2 (12.0-16.0) g/dL Hct 37.0 (36-46) % MCV 100.6 H (80-100) fL MCH 33.3 (26-34) PG MCHC 33.1 (30-36) % RDW 12.9 (11.6-14.8) % Plt Count 190 (150-400) X10^3/uL Neut % (Auto) 65.8 (50-75) % Lymph % (Auto) 25.4 (25-40) % [place] % (Auto) 6.2 (3-14) % Eos % (Auto) 2.3 (2-4) % Baso % (Auto) 0.3 (0-2) % Neut # (Auto) 3400 (1917-2809) /uL Lymph # (Auto) 1300 (1802-8603) /uL [place] # (Auto) 300 (0-900) /uL Eos # (Auto) 100 (0-450) /uL Baso # (Auto) 0 (0-100) /uL Sodium 140 (137-145) mmol/L Potassium 4.2 (3.4-5.1) mmol/L Chloride 105 (98-107) mmol/L Carbon Dioxide 30 (22-32) mmol/L BUN 27 H (7-17) mg/dL Creatinine 1.07 H (0.52-1.04) mg/dL Estimated GFR 50.0 L (>60) mL/min BUN/Creatinine Ratio 25.2 H (6-22) Glucose 89 (80-110) mg/dL Calcium 10.0 (8.4-10.2) mg/dL Total Bilirubin 0.4 (0.2-1.3) mg/dL AST 33 (14-36) IU/L ALT 25 (<35) IU/L Alkaline Phosphatase 76 (38-126) U/L Total Protein 6.6 (6.3-8.2) g/dL Albumin 3.9 (3.5-5.0) g/dL Globulin 2.7 (1.7-4.1) g/dL Albumin/Globulin Ratio 1.4 (1.0-2.8) Urine Color [place] Urine Appearance Clear Urine pH 5.5 (4.5-8.0) Ur Specific [place] 1.015 (1.000-1.035) Urine Protein 1+ H (Negative) Urine Glucose (UA) Trace H (Negative) g/dL Urine Ketones Negative (NEGATIVE) Urine Occult Blood Negative (Negative) Urine Nitrate Positive H (Negative) Urine Bilirubin Negative (NEGATIVE) Urine Urobilinogen 1.0 (0.2) E.U./dL Ur Leukocyte Esterase Trace H (NEGATIVE) Urine RBC None seen (0-5/HPF) Urine WBC 1-5/hpf (0-5/HPF) Urine Bacteria Few (2-10) H (None) Ur Culture Indicated? Specimen cultured Imaging Data CT scan - abdomen/pelvis: Radiologist's Impression: Desean Barraza 75 F [address] [id number] Scan ReportSigned Patient: Desean Barraza LMR#: [id number]: 5Acct:[id number]/Sex: 75 / FDate of Service: 02/08/21Loc: EDAccession Number: [id number] Procedure: CT kidney ureter bladder (KUB) Ordering Provider: Sierra Vera D.O. PROCEDURE: CT KIDNEY URETER BLADDER (KUB) INDICATIONS: acute urinary retention ? obstructive uropathy TECHNIQUE: Axial sections were acquired from the lung bases to the pubic symphysis. Coronal and sagittal reformats were performed. For radiation dose reduction, the following was used: automated exposure control, adjustment of mA and/or kV according to patient size. COMPARISON:None. FINDINGS: Image quality: Excellent. Lung bases: Unremarkable. Heart: No significant findings. URINARY: Right Kidney: Numerous tiny parenchymal calcifications. 3 mm middle pole stone. No hydronephrosis. Right Ureter: No hydroureter. Left Kidney: Multiple subtle parenchymal calcifications. No calyceal stones. No hydronephrosis. Left Ureter: Unremarkable Bladder: Bladder is decompressed by a Garcia catheter. ABDOMEN: Liver: Unremarkable. Gallbladder: Surgically absent Biliary ducts: Unremarkable. Pancreas: Unremarkable. Spleen: Unremarkable. Adrenal Glands: Unremarkable. Large amount of fecal debris. Stomach and Bowel: Stomach, small bowel loops, and colon are unremarkable. Large amount of fecal debris. Peritoneum: No abnormal intraperitoneal fluid. No free air. Ventral Wall: No hernia. Abdominal Nodes: No enlarged retroperitoneal or mesenteric lymph nodes. Vessels: Aorta and inferior vena cava are normal in size. PELVIS: Pelvic Organs: Uterus is surgically absent. Pelvic Nodes: Unremarkable. Miscellaneous: No inguinal hernias are seen. Bones: Diffuse lumbar degenerative change IMPRESSION: 1. No evidence of hydronephrosis. 2. Subtle bilateral multifocal renal cortical calcifications. 3. Small nonobstructing right renal stone. 4. Bladder is decompressed by a Garcia catheter. 5. Large fecal load. Dictated by: Leo Laguerre M.D. on 02/08/2021 at 12:44 Approved by: Leo Laguerre M.D. on 02/08/2021 at 12:58 MDM Narrative Medical decision making narrative: 75-year-old lady comes emergency department with urinary tension likely has a combination of UTI, chronic constipation with a large fecal load possibly some chronic urinary retention that has acutely worsened as she is fairly asymptomatic. Renal functions normal, CT KUB does not show any obstructive process. Patient started on a new antibiotic, Flomax as well as our regimen to help with regular stooling. Patient has an appointment tomorrow with Urology for recheck. Discharge Plan Departure Patient Disposition: Home Clinical Impression: Acute UTI, Acute urinary retention, Constipation Instructions: DI for Constipation, DI for Urinary Retention in Women Activity Restrictions/Additional Instructions: Follow-up with urology your appointment tomorrow at 2:45 p.m. Take Flomax once daily. Begin this medication today. Start oral antibiotics today as well. Take these until the completion unless otherwise directed by your urologist. Constipation can also cause urinary retention so make sure you take a stool softener 1-2 times daily until stools are soft and regular. Make sure your hydrating regularly and eating high-fiber foods. [facility] Please return for fevers, new abdominal, back or flank pain, if her catheter is not draining any urine, few having persistent vomiting, lightheadedness or passing out or other new or concerning symptoms. Prescriptions: New tamsulosin [Flomax] 0.4 mg capsule 0.4 mg PO DAILY Qty: 10 RF: 0 cephalexin 500 mg capsule 500 mg PO BID 7 Days Qty: 14 RF: 0 docusate sodium [Colace] 100 mg capsule 100 mg PO DAILY PRN (Reason: constipation) Qty: 20 RF: 0 No Action levothyroxine [Levoxyl] 75 mcg tablet 75 mcg PO DAILY RF: 0 Lactobacillus acidophilus [Acidophilus] capsule 100 mg PO DAILY RF: 0 cholecalciferol (vitamin D3) 2,000 unit capsule 2,000 unit PO DAILY RF: 0 hydroxyzine HCl 25 mg tablet 25 mg PO BEDTIME PRN (Reason: insomnia) Qty: 90 RF: 3 [NEERAJ-C] 500 mg PO QDAY Qty: 0 RF: 0 [CALTRATE] 500 mg PO QDAY Qty: 0 RF: 0 [FISH OIL] 1,000 mg PO TID Qty: 0 RF: 0 MULTIVITAMIN (Multivitamin -) 1 cap PO EVERY DAY Qty: 0 RF: 0 [GLUCOSAMINE] 1,500 mg PO QDAY Qty: 0 RF: 0 mirabegron [Myrbetriq] 50 MG tablet extended release 24 hr 50 mg PO Qty: 0 RF: 0 ibandronate [Boniva] 150 MG tablet 150 mg OR QMONTH Qty: 0 RF: 0 estradiol [Estrace] 0.01 % cream 0.01 % Vaginal HS Qty: 0 RF: 0 trazodone 50 mg tablet 100 mg PO HS Qty: 210 RF: 3 lamotrigine 200 mg tablet 200 mg PO DAILY Qty: 90 RF: 3 bupropion HCl 300 mg tablet extended release 24 hr 300 mg PO QAM Qty: 90 RF: 3 atorvastatin 10 mg TABLET 10 mg PO DAILY RF: 0 valacyclovir 1 gram TABLET 1,000 mg PO DAILY RF: 0 solifenacin 10 mg TABLET 10 mg PO DAILY RF: 0 Referrals: Spring Hoskins MD [Primary Care Provider] - Ari Og MD [Physician] -
[2021-02-08 14:32] VITALS: BP 124/78; PULSE 68; RESP 16; O2SAT 97
== END 2021-02-08 14:34 | disposition home or self-care (01) ==
PROVIDERS: Emergency Provider Emergency Medicine; PCP Student in an Organized Health Care Education/Training Program
DX: N39.0 Urinary tract infection, site not specified (principal); R33.8 Other retention of urine; K59.00 Constipation, unspecified
CPT/HCPCS: 36415; 51702; 51798; 74176; 80053; 81001; 85025; 87086; 99284

== ENCOUNTER → 2021-02-19 15:26 | Outpatient (CLI) | payer MEDICARE, OTHER, SELFPAY ==
[2021-02-19 16:30] LABS: Appearance Urine UA CLEAR; Bilirubin Urine UA NEGATIVE (NEGATIVE); Color Urine UA YELLOW; Glucose Urine UA NEGATIVE (Negative); Ketones Urine UA NEGATIVE (NEGATIVE); Leukocyte Esterase Urine UA NEGATIVE (NEGATIVE); Nitrite Urine UA NEGATIVE (Negative); Occult Blood Urine UA TRACE-INTACT (Negative); Protein Urine UA NEGATIVE (Negative); Specific Gravity Urine UA <=1.005 (1.000-1.035); Urobilinogen Urine UA 0.2 E.U./dL (0.2)
[2021-02-19 16:53] LABS: Bacteria Urine Few (2-10); Culture Indicated Urine Cult Not Indicated; RBC Urine 0-1/HPF (0-5/HPF); WBC Urine 0-1/HPF (0-5/HPF)
== END ==
PROVIDERS: PCP Student in an Organized Health Care Education/Training Program; Visit Provider Urology
DX: N39.0 Urinary tract infection, site not specified (principal); R33.9 Retention of urine, unspecified
CPT/HCPCS: 51798; 81001

== ENCOUNTER 2021-08-03 07:09 | Emergency (ER) | payer MEDICARE, OTHER, SELFPAY ==
[2021-08-03 07:07] VITALS: O2SAT 95
[2021-08-03 07:08] VITALS: BP 125/86; PULSE 58; O2SAT 95
--- NOTE | 2021-08-03 07:11 | DI.RAD.S_ITS ---
PROCEDURE: XR WRIST LT MIN 3V INDICATIONS: pain deformity TECHNIQUE: 4 views of the wrist were acquired. COMPARISON: None. FINDINGS: Bones: Comminuted, intra-articular fracture of the distal radius. Mildly displaced fracture of the ulnar styloid process.. Scaphoid view: Scaphoid is intact. Soft tissues: No suspicious soft tissue calcifications. IMPRESSION: Comminuted, intra-articular distal radius fracture. Ulnar styloid process fracture Dictated by: Anaya Menendez MD, PhD on 08/03/2021 at 7:49 Approved by: Anaya Menendez MD, PhD on 08/03/2021 at 7:50
[2021-08-03 07:13] VITALS: BP 125/86; PULSE 63; RESP 18; TEMP 36.2; O2SAT 95; BMI 19.5
--- NOTE | 2021-08-03 07:20 | PC.NURSE ---
Pt wears cochlear implant, did not bring it with her to hospital. Fell this morning, tripped on a throw rug at 0500. Hit her head R-side, provider aware. AOx4.
--- NOTE | 2021-08-03 07:53 | ED.FALL ---
HPI - Fall General Chief Complaint: Fall Stated Complaint: GLF,Lt wrist deformed Time Seen by Provider: 08/03/21 07:11 Source: patient and EMS Mode of arrival: EMS History of Present Illness HPI Narrative: Patient is a 76-year-old female with history of bipolar, hopefully rectum plant, alcoholism chronic back pain presenting today after ground level fall. She says she got up to use the restroom she tripped on a rug and caught her left wrist. She may have hit her head but no loss of consciousness no nausea or vomiting she is not on any antiplatelet or anticoagulation medications. No other pain or injury at this time. She was splinted by EMS and given 50 of fentanyl, the pain is controlled. She is right-hand dominant. Related Data Home Medications Medication Instructions Recorded Confirmed [CALTRATE] 500 mg PO QDAY #0 01/21/10 05/07/21 [NEERAJ-C] 500 mg PO QDAY #0 01/21/10 05/07/21 [FISH OIL] 1,000 mg PO TID #0 01/21/10 05/07/21 MULTIVITAMIN (Multivitamin 1 cap PO EVERY DAY #0 01/25/10 05/07/21 -) [GLUCOSAMINE] 1,500 mg PO QDAY #0 01/25/10 05/07/21 mirabegron 50 mg tablet,extended 50 mg PO #0 06/24/17 05/07/21 release 24 hr (Myrbetriq) estradiol (Estrace) 0.01 % VAGINAL HS #0 07/25/17 05/07/21 ibandronate 150 mg tablet (Boniva) 150 mg OR QMONTH #0 07/25/17 05/07/21 Lactobacillus acidophilus 100 mg PO DAILY 03/21/18 05/07/21 (Acidophilus) cholecalciferol (vitamin D3) 50 2,000 unit PO DAILY 03/21/18 05/07/21 mcg (2,000 unit) capsule levothyroxine 75 mcg tablet 75 mcg PO DAILY 03/21/18 05/07/21 (Levoxyl) atorvastatin 10 mg tablet 10 mg PO DAILY tab 01/29/21 05/07/21 solifenacin 10 mg tablet 10 mg PO DAILY tab 01/29/21 05/07/21 valacyclovir 1 gram tablet 1,000 mg PO DAILY tab 01/29/21 05/07/21 Previous Rx's Medication Instructions Recorded hydroxyzine HCl 25 mg tablet 25 mg PO BEDTIME PRN #90 tab 05/12/20 bupropion HCl 300 mg 24 hr tablet, 300 mg PO QAM #90 tab 09/07/20 extended release lamotrigine 200 mg tablet 200 mg PO DAILY #90 tab 09/07/20 docusate sodium 100 mg capsule 100 mg PO DAILY PRN #20 cap 02/08/21 (Colace) tamsulosin 0.4 mg capsule (Flomax) 0.4 mg PO DAILY #10 cap 02/08/21 trazodone 50 mg tablet 100 mg PO HS #210 tab 02/12/21 hydrocodone 5 mg-acetaminophen 325 1 tab PO Q6H PRN #10 tab 08/03/21 mg tablet Allergies Allergy/AdvReac Type Severity Reaction Status Date / Time No Known Drug Allergies Allergy Verified 05/07/21 11:06 Review of Systems Review of Systems Narrative: GENERAL: Denies chills, fatigue, malaise, fever, sweats, travel HEENT: Denies sinus pain, ear pain, sore throat, difficulty swallowing, neck pain RESPIRATORY: Denies dyspnea, cough, wheezing, hemoptysis, sputum. CARDIOVASCULAR: Denies chest pain, palpitations, orthopnea, edema GASTROINTESTINAL: Denies nausea, vomiting, abdominal pain, diarrhea, constipation, melena. : Denies dysuria, frequency, incontinence, hematuria, urinary retention, flank pain. MUSCULOSKELETAL: See HPI SKIN: No rash, no erythema, no pruritus NEUROLOGIC: Denies weakness, dizziness, headache, numbness, change in speech, confusion PSYCHIATRIC: No concerning psychosocial issues. 12 point review of systems is negative except for those stated above and HPI Patient History Medical History (Updated 08/03/21 @ 08:27 by Dalila Jordan DO) Atrophic vaginitis Bilateral sensorineural hearing loss Bipolar II disorder Cataract fragments in left eye following surgery Cochlear implant in place Constipation Herpes Hypothyroidism Insomnia Mild renal insufficiency Nocturia Urgency incontinence Urinary retention Surgical History H/O: hysterectomy History of bladder suspension procedure History of cholecystectomy History of hysterectomy Hx of breast reduction, elective Social History Smoking Status: Never smoker Smoking Status: Never smoker alcohol intake frequency: other Substance Use Type: does not use Exam Initial Vital Signs Initial Vital Signs: Vital Signs Pulse Oximetry 95 08/03/21 07:07 GENERAL: Alert 76-year-old female hard of hearing HEENT: Head atraumatic,EOMI, pupils reactive, face symmetric, moist mucous membranes CARDIOVASCULAR: Regular rate and rhythm without murmurs, rubs or gallops. RESPIRATORY: Breath sounds equal bilaterally, no wheezes rales or rhonchi. ABDOMEN: Soft, nontender. Normoactive bowel sounds all 4 quadrants. No guarding or rebound. EXTREMITIES: Normal range of motion, no clubbing or edema. Neurovascularly intact Left wrist in cardboard splint distal radial pulse intact, swelling deformity noted NEUROLOGICAL: Alert and oriented x4. SKIN: Warm, dry, no laceration, no petechiae, no rashes or lesions. Procedures Orthopedic Splinting/Casting Injury #1: Upper Extremity Injury Location: forearm Upper Extremity Immobilizer: sling/shoulder immobilizer and sugar tong splint Post splinting neuro exam: intact Post splinting vascular exam: intact Placed by: Nursing Course Orders Ordered: ED Orders 08/03/21 07:11 XR wrist LT min 3V Stat Discontinued Medications Morphine Sulfate (Morphine 2 Mg/Ml Inj) 2 mg IV NOW ONE Stop: 08/03/21 07:50 Last Admin: 08/03/21 08:00 Dose: 2 mg Documented by: APOLINAR Vital Signs Vital signs: Vital Signs - 8 hr 08/03/21 07:07 08/03/21 07:08 08/03/21 07:13 Temperature 97.1 F L Pulse Rate 58 L 63 Respiratory Rate 18 Blood Pressure 125/86 125/86 Pulse Oximetry 95 95 95 MDM - Fall Imaging Data Extremity x-ray #1: Radiologist's Impression: PROCEDURE:? XR WRIST LT MIN 3V ? INDICATIONS: pain deformity ? TECHNIQUE:? 4 views of the wrist were acquired.? ? COMPARISON:? None. ? FINDINGS:? ? Bones:? Comminuted, intra-articular fracture of the distal radius.? Mildly displaced fracture of the ulnar styloid process..? ? Scaphoid view:? Scaphoid is intact. ? Soft tissues:? No suspicious soft tissue calcifications.? ? IMPRESSION:? Comminuted, intra-articular distal radius fracture.? Ulnar styloid process fracture ? ? Dictated by: Anaya Menendez MD, PhD on 08/03/2021 at 7:49 ? MDM Narrative Medical decision making narrative: Dr. Adhikari contacted in reviewed x-ray. Patient does not need surgery he is at happy to see her in the office. Discharge Plan Departure Patient Disposition: Home Clinical Impression: Fracture of left wrist Instructions: DI for Wrist Fracture Activity Restrictions/Additional Instructions: *You have been diagnosed with left wrist fracture *What to do: Keep arm in splint at all times. Wear sling while active. Put bag over for showering. May ice 20-30 minutes through splint if needed *Continue to take medications as directed [place] 1 tablet every 6 hours if needed for pain *Follow up with your primary care provider in 2-3 days, or call [phone] call orthopedics today to schedule follow-up appointment *Return to ER if you should have increasing pain numbness tingling or any new, worsening or concerning symptoms CONTROLLED SUBSTANCE DISCHARGE (Narcotoic/benzodiazepine/Flexeril/Phenergan) 1. You have been prescribed narcotic medications, it does have acetaminophen/Tylenol/paracetamol in it, DO NOT TAKE MORE THAN 4,00mg in 24 hours of Tylenol. TRAMADOL DOES NOT CONTAIN TYLENOL 2. Please understand that we cannot provide further refills of narcotics, benzodiazepines or controlled substances through the ED and her pain management will need to be through your provider. 3. While on these medications you cannot drive or operate heavy machinery. 4. You cannot sign legal documents or perform any duties such as this. 5. As long as you're taking opiate pain medications he should also be taking a stool softener such as Colace, Dulcolax, MiraLAX or prune juice, to help avoid constipation. Prescriptions: New hydrocodone-acetaminophen 5-325 mg tablet 1 tab PO Q6H PRN (Reason: pain) Qty: 10 0RF No Action levothyroxine [Levoxyl] 75 mcg tablet 75 mcg PO DAILY 0RF Lactobacillus acidophilus [Acidophilus] capsule 100 mg PO DAILY 0RF cholecalciferol (vitamin D3) 2,000 unit capsule 2,000 unit PO DAILY 0RF hydroxyzine HCl 25 mg tablet 25 mg PO BEDTIME PRN (Reason: insomnia) Qty: 90 3RF [NEERAJ-C] 500 mg PO QDAY Qty: 0 0RF [CALTRATE] 500 mg PO QDAY Qty: 0 0RF [FISH OIL] 1,000 mg PO TID Qty: 0 0RF MULTIVITAMIN (Multivitamin -) 1 cap PO EVERY DAY Qty: 0 0RF [GLUCOSAMINE] 1,500 mg PO QDAY Qty: 0 0RF mirabegron [Myrbetriq] 50 MG tablet extended release 24 hr 50 mg PO Qty: 0 0RF ibandronate [Boniva] 150 MG tablet 150 mg OR QMONTH Qty: 0 0RF estradiol [Estrace] 0.01 % cream 0.01 % Vaginal HS Qty: 0 0RF lamotrigine 200 mg tablet 200 mg PO DAILY Qty: 90 3RF bupropion HCl 300 mg tablet extended release 24 hr 300 mg PO QAM Qty: 90 3RF trazodone 50 mg tablet 100 mg PO HS Qty: 210 3RF Rx Instructions: Take 2 tabs each night. OK to increase to 3 tabs if needed for occasional insomnia. tamsulosin [Flomax] 0.4 mg capsule 0.4 mg PO DAILY Qty: 10 0RF docusate sodium [Colace] 100 mg capsule 100 mg PO DAILY PRN (Reason: constipation) Qty: 20 0RF atorvastatin 10 mg TABLET 10 mg PO DAILY 0RF valacyclovir 1 gram TABLET 1,000 mg PO DAILY 0RF solifenacin 10 mg TABLET 10 mg PO DAILY 0RF Referrals: [facility] [Provider Group] Spring Hoskins MD [Primary Care Provider] - Dilshad Adhikari MD [Physician] -
[2021-08-03] MEDS: MORPHINE 2 MG/ML INJ IV (08:00)
--- NOTE | 2021-08-03 08:37 | PC.NURSE ---
Patient was transported VIA EMS for pain in left wrist following a ground level fall. X Ray showed a fracture of the left wrist. Wrist was splinted and placed left arm in sling.
== END 2021-08-03 08:48 | disposition home or self-care (01) ==
PROVIDERS: Emergency Provider Emergency Medicine; PCP Student in an Organized Health Care Education/Training Program
DX: S52.572A Other intraarticular fracture of lower end of left radius, initial encounter for closed fracture (principal); W01.0XXA Fall on same level from slipping, tripping and stumbling without subsequent striking against object, initial encounter
CPT/HCPCS: 73110; 99283; 99284; J2270

== ENCOUNTER → 2022-01-13 11:39 | Outpatient (CLI) | payer MEDICARE, OTHER, SELFPAY | PROVIDERS: PCP Family Medicine; Referring Provider Family Medicine; Visit Provider Family Medicine | DX: Z13.820 Encounter for screening for osteoporosis (principal); Z78.0 Asymptomatic menopausal state; M81.0 Age-related osteoporosis without current pathological fracture; Z90.710 Acquired absence of both cervix and uterus | CPT/HCPCS: 77080 ==

== ENCOUNTER → 2022-01-28 14:15 | Outpatient (CLI) | payer MEDICARE, OTHER, SELFPAY ==
--- NOTE | 2022-01-28 14:18 | DI.CT.S_ITS ---
PROCEDURE: CT LUMBAR SPINE WO CON INDICATIONS: Wedge compression fracture of unspecified thoracic vertebra, TECHNIQUE: Noncontrast 3 mm thick sections acquired from the T12 level to the sacrum. Sagittal and coronal reformats were constructed. For radiation dose reduction, the following was used: automated exposure control. COMPARISON: [facility], CT, CT KIDNEY URETER BLADDER (KUB), 02/08/2021, 11:39. [facility], CT, CT THORACIC SPINE WO CON, 01/28/2022, 14:41. [facility], CT, CT LUMBAR SPINE WO CON, 09/26/2019, 11:36. FINDINGS: Image quality: Excellent. Bones: The T12 level demonstrates a moderate anterior compression deformity, with 30-40% loss height. This fracture appears subacute, with mild remodeling changes. No posterior displacement of fracture fragments can be seen. No suspicious lytic or blastic bony lesions. No pars defects. Mild levoconvex scoliotic curvature is noted. There is minimal retrolisthesis seen at L2-L3 and minimal anterolisthesis seen at L5-S1. T12-L1: Moderate loss of disc height is seen. Endplate irregularity and sclerosis can be seen. No significant neural foraminal or central canal narrowing can be seen. L1-L2: Mild loss of disc height is seen on the right side. No significant neural foraminal narrowing is seen. Mild central canal narrowing is seen. Stable from the prior study. L2-L3: Moderate to severe loss of disc height is seen. Vacuum disc phenomenon is seen at this level. Endplate irregularity and sclerosis can be seen. Partially bridging endplate osteophytes are seen on the right side. Moderate generalized disc bulge is seen. There is moderate left-sided and at least moderate right-sided neural foraminal narrowing. Moderate central canal narrowing is seen. Stable from the prior study. L3-L4: Moderate loss disc height is seen. Moderate disc bulge is seen, with a central disc protrusion. There is mild right-sided and at least moderate left-sided neural foraminal narrowing. There is moderate left-sided and moderate to severe right-sided neural foraminal narrowing. Moderate to severe central canal narrowing is seen at this level. No significant change from the prior. L4-L5: Moderate to severe loss of disc height is seen. Endplate irregularity and sclerosis can be seen. Partially bridging endplate osteophytes are seen anteriorly and on the left side. Moderate generalized disc bulge is seen. At least moderate bilateral neural foraminal narrowing is seen at this level. Mild to moderate central canal narrowing is seen. Stable from the prior study. L5-S1: The disc height is well preserved. Mild generalized disc bulge is seen. At least moderate facet hypertrophy is seen. Moderate bilateral neural foraminal narrowing can be seen, left worse than right. There is at least moderate central canal narrowing. When comparison is made with the prior images, these findings are similar. Soft tissues: No retroperitoneal masses or hematomas. Visualized aorta is normal in caliber. Cholecystectomy clips are seen. Tiny nonobstructing bilateral renal stones are seen. There is no hydronephrosis. IMPRESSION: At the T12 level, there is a subacute compression deformity anteriorly, with 30-40% loss of height. No posterior displacement of fracture fragments can be seen. Multiple levels of degenerative change are seen, which appear similar to 2020. Incidental note is made of: Levoconvex scoliotic curvature Cholecystectomy clips Dictated by: Cornell Sun M.D. on 01/28/2022 at 14:56 Approved by: Cornell Sun M.D. on 01/28/2022 at 15:03
--- NOTE | 2022-01-28 14:38 | DI.CT.S_ITS ---
PROCEDURE: CT THORACIC SPINE WO CON INDICATIONS: Wedge compression fracture of unspecified thoracic vertebra, TECHNIQUE: Noncontrast 3 mm thick sections acquired through the region of interest in the thoracic spine. Sagittal and coronal reformats were then constructed. For radiation dose reduction, the following was used: automated exposure control. COMPARISON: [facility], CT, CT KIDNEY URETER BLADDER (KUB), 02/08/2021, 11:39. [facility], CT, CT LUMBAR SPINE WO CON, 01/28/2022, 14:41. FINDINGS: Image quality: Excellent. Bones: T12 wedge-shaped compression fractures again noted similar prior exam with approximately 40% anterior height loss and no retropulsed fracture fragment. Diffuse disc space narrowing and endplate degenerative disc disease noted in the mid to lower thoracic spine. Central canal however is widely patent throughout. Anterior osteophytes noted. At the cervical thoracic junction, the posterior disc osteophyte complex noted at C6-7 resulting in [id number] central stenosis. Soft tissues: No paravertebral masses or hematomas. Visualized posteromedial lungs appear clear. IMPRESSION: 1. T12 compression fracture, stable from prior exam. 2. Thoracic central osseous canal is widely patent. 3. Degenerative disc disease at C6-7 results in [id number] central stenosis Approved by: Sameer Ribeiro M.D. on 01/28/2022 at 16:25
== END ==
PROVIDERS: PCP Family Medicine; Referring Provider Family Medicine; Visit Provider Family Medicine
DX: S22.080A Wedge compression fracture of T11-T12 vertebra, initial encounter for closed fracture (principal); M47.816 Spondylosis without myelopathy or radiculopathy, lumbar region; M47.817 Spondylosis without myelopathy or radiculopathy, lumbosacral region; M43.8X4 Other specified deforming dorsopathies, thoracic region
CPT/HCPCS: 72128; 72131

== ENCOUNTER 2022-02-26 15:46 | Emergency (ER) | payer MEDICARE, OTHER, SELFPAY ==
[2022-02-26 15:55] VITALS: BP 141/65; PULSE 79; RESP 15; TEMP 36.7; O2SAT 97; BMI 19.5
--- NOTE | 2022-02-26 15:59 | DI.RAD.S_ITS ---
PROCEDURE: XR RIBS RT MIN 3V W CXR 1V INDICATIONS: received heimlich yesteray,now having rib pain TECHNIQUE: 2 views of the right ribs were acquired, along with a single view chest. COMPARISON: None. FINDINGS: Surgical changes and devices: Surgical clips present in the right upper quadrant. Bones and chest wall: No fractures or dislocations. No suspicious bony lesions. Overlying soft tissues appear unremarkable. L1 vertebroplasty noted Lungs and pleura: No pleural effusions or pneumothorax. Lungs appear clear. Mediastinum: Mediastinal contours appear normal. Heart size is normal. IMPRESSION: No acute cardiopulmonary findings. No evidence of rib fracture. Approved by: Sameer Ribeiro M.D. on 02/26/2022 at 17:29
--- NOTE | 2022-02-26 16:34 | ED_ITS ---
HPI - Extremity Problem General Chief complaint: Extremity Problem,Nontraumatic Stated complaint: Choking yesterday, very sore ribcage Time Seen by Provider: 02/26/22 16:34 Source: patient Mode of arrival: Ambulatory History of Present Illness HPI Narrative: 77-year-old female nonsmoker with no significant chronic medical history presents with the chief complaint of right lower rib pain since being given the Heimlich maneuver yesterday. She states that she had a choking episode and a bystander performed the Heimlich maneuver on her and she felt pain in her right lower lateral ribs. She denies any shortness of breath and has no trouble eating or drinking today. The maneuver allowed her to clear what she was choking on and she is otherwise well. She has this right lateral rib pain that is worse with motion and taking a deep breath. Patient also complains of vaginal burning for the past few weeks. She denies any dysuria, frequency or urgency. She states she is had herpes simplex on a few occasions in the past and when she started having pain she took some antiviral. She denies any discharge or bleeding Related Data Home Medications Medication Instructions Recorded Confirmed [CALTRATE] 500 mg PO QDAY ##0 01/21/10 09/01/21 [NEERAJ-C] 500 mg PO QDAY ##0 01/21/10 09/01/21 [FISH OIL] 1,000 mg PO TID ##0 01/21/10 09/01/21 MULTIVITAMIN (Multivitamin 1 cap PO EVERY DAY ##0 01/25/10 09/01/21 -) [GLUCOSAMINE] 1,500 mg PO QDAY ##0 01/25/10 09/01/21 mirabegron 50 mg tablet,extended 50 mg PO ##0 06/24/17 09/01/21 release 24 hr (Myrbetriq) estradiol 0.01% (0.1 mg/gram) 0.01 % vaginal HS ##0 07/25/17 09/01/21 vaginal cream (Estrace) ibandronate 150 mg tablet (Boniva) 150 mg OR QMONTH ##0 07/25/17 09/01/21 Lactobacillus acidophilus 100 mg PO DAILY 03/21/18 09/01/21 (Acidophilus capsule) cholecalciferol (vitamin D3) 50 2,000 unit PO DAILY 03/21/18 09/01/21 mcg (2,000 unit) capsule levothyroxine 75 mcg tablet 75 mcg PO DAILY 03/21/18 09/01/21 (Levoxyl) atorvastatin 10 mg tablet 10 mg PO DAILY 01/29/21 09/01/21 solifenacin 10 mg tablet 10 mg PO DAILY 01/29/21 09/01/21 valacyclovir 1 gram tablet 1,000 mg PO DAILY 01/29/21 09/01/21 Previous Rx's Medication Instructions Recorded docusate sodium 100 mg capsule 100 mg PO DAILY PRN constipation 02/08/21 (Colace) #20 caps tamsulosin 0.4 mg capsule (Flomax) 0.4 mg PO DAILY #10 caps 02/08/21 hydrocodone 5 mg-acetaminophen 325 1 tab PO Q6H PRN pain #10 tabs 08/03/21 mg tablet bupropion HCl 300 mg 24 hr tablet, 300 mg PO QAM #90 tabs 10/08/21 extended release hydroxyzine HCl 25 mg tablet 25 mg PO BEDTIME PRN insomnia #90 10/08/21 tabs lamotrigine 200 mg tablet 200 mg PO DAILY #90 tabs 11/02/21 trazodone 150 mg tablet 150 mg PO HS #100 tabs 11/02/21 fluconazole 150 mg tablet 150 mg PO Q3D 2 doses #2 tabs 02/26/22 hydrocodone 5 mg-acetaminophen 325 1 tab PO Q4-6H PRN pain #20 tabs 02/26/22 mg tablet Allergies Allergy/AdvReac Type Severity Reaction Status Date / Time No Known Drug Allergies Allergy Verified 02/26/22 15:55 Review of Systems Review of Systems Narrative: GENERAL: Denies chills, fatigue, malaise, fever, sweats. HEENT: Denies sinus pain, ear pain, sore throat, difficulty swallowing, dizziness. RESPIRATORY: See HPI. CARDIOVASCULAR: Denies chest pain, palpitations, orthopnea, edema, GASTROINTESTINAL: Denies nausea, vomiting, abdominal pain, diarrhea, constipation, melena. : Denies dysuria, frequency, incontinence, hematuria, urinary retention. MUSCULOSKELETAL: denies weakness, joint pain, or bony pain SKIN: Denies rash, skin lesions, or other NEUROLOGIC: Denies weakness, headache, numbness, change in speech, confusion, seizures, incoordination. PSYCHIATRIC: No concerning psychosocial issues. 12 point review of systems is negative except for those stated above Patient History Medical History Atrophic vaginitis Bilateral sensorineural hearing loss Bipolar II disorder Cataract fragments in left eye following surgery Cochlear implant in place Constipation Herpes Hypothyroidism Insomnia Mild renal insufficiency Nocturia Urgency incontinence Urinary retention Surgical History H/O: hysterectomy History of bladder suspension procedure History of cholecystectomy History of hysterectomy Hx of breast reduction, elective Social History Smoking Status: Never smoker Smoking Status: Never smoker alcohol intake frequency: holidays/special occasions only Substance Use Type: does not use Exam Narrative Exam Narrative: GENERAL: [77] year old patient appears younger than stated age. Well-developed patient, in mild distress. Very hard of hearing, complaining of right lateral rib pain HEAD: Atraumatic. Normocephalic. EYES: Pupils equal round and reactive. Extraocular motions intact. No scleral icterus. No injection or drainage. ENT: Nose without bleeding, purulent drainage. Throat without erythema, tonsillar hypertrophy or exudate. Airway patent. NECK: Trachea midline. Non tender CARDIOVASCULAR: Regular rate and rhythm without murmurs, gallops, or rubs. Right lower lateral rib pain, tenderness to palpate, no subcu emphysema, erythema or induration RESPIRATORY: Clear to auscultation. Breath sounds equal bilaterally. No wheezes, rales, or rhonchi. GASTROINTESTINAL: Abdomen soft, non-tender, nondistended. PELVIC: Performed with patient's permission and female nurse commercial front load driver at the bedside. No blisters, ulcerations, redness or swelling of external genitalia noted. Scant amount of whitish discharge noted vaginally EXTREMITIES: No edema or joint tenderness. BACK: Nontender without deformity or crepitance. No flank tenderness. NEURO: AOx3. SKIN: No rash or erythema of visible areas Initial Vital Signs Initial Vital Signs: Vital Signs Temperature 98.0 F 02/26/22 15:55 Pulse Rate 79 02/26/22 15:55 Respiratory Rate 15 02/26/22 15:55 Blood Pressure 141/65 H 02/26/22 15:55 Pulse Oximetry 97 02/26/22 15:55 Oxygen Delivery Method 02/26/22 15:55 Course Orders Ordered: ED Orders 02/26/22 15:59 XR ribs RT min 3V w CXR1V Stat 02/26/22 18:33 Genital Culture Stat Wet Prep Tric BV Paulina Stat Discontinued Medications Hydrocodone Bitart/Acetaminophen (Hydrocodone/Acet 5/325 Prepack) 1 bottle MISC SEEINSTR ONE Stop: 02/26/22 16:58 Last Admin: 02/26/22 17:32 Dose: 1 bottle Documented By: NR Hydrocodone Bitart/Acetaminophen (Hydrocodone/Acet 5/325 Prepack) 1 bottle MISC SEEINSTR ONE Stop: 02/26/22 17:01 Last Admin: 02/26/22 18:02 Dose: Not Given Documented By: TANISHA Lidocaine (Lidocaine Patch 1 Each Adh..Patch) 1 each TOP NOW ONE Stop: 02/26/22 16:46 Last Admin: 02/26/22 16:55 Dose: 1 each Documented By: NR Vital Signs Vital signs: Vital Signs - 8 hr 02/26/22 15:55 02/26/22 17:35 02/26/22 18:38 Temperature 98.0 F Pulse Rate 79 64 Respiratory Rate 15 18 Blood Pressure 141/65 H 133/62 147/65 H Pulse Oximetry 97 98 Oxygen Delivery Method Room Air 02/26/22 18:38 Temperature Pulse Rate 63 Respiratory Rate Blood Pressure Pulse Oximetry 98 Oxygen Delivery Method MDM - Extremity (Nontraumatic) Lab Data Labs: Urine Dip Bedside Urine Glucose Negative Bedside Urine Bilirubin - Negative Bedside Urine Ketone - Negative Urine Specific Adell 1.030 Bedside Urine Occult Blood - Negative Bedside Urine pH 6.0 Bedside Urine Protein - Negative Bedside Urine Urobilinogen - Negative Bedside Urine Nitrite - Negative Bedside Urine Leukocytes - Negative Esterase Imaging Data Chest x-ray: Radiologist's Impression: Desean Barraza??77??F??1945 ? Allergy/Adv: No Known Drug Allergies (More??) Close Ribs X-Ray (Signed) Sameer Ribeiro - 02/26/[address] (Signed) Sameer Ribeiro - 01/28/[address] (Signed) Cornell Sun - 01/28/22 Bone Densitometry 01/13/22 DEXA Result 01/13/22 Wrist X-Ray (Signed) Anaya Menendez - 08/03/21 Abdomen/Pelvis CT (Signed) Leo Laguerre - 02/08/21 Mammogram Screening (Signed) Constantino Alcantara - 02/08/21 Ribs X-Ray (Signed) Nelsy Mcdaniel - 03/12/[address] (Signed) Benitez Gomez - 02/17/20 Mammogram Screening (Signed) Trung Becerra - 02/06/20 Bone Densitometry 01/14/[address] (Signed) Alida Sune - 09/26/19 Lumbar Spine X-Ray (Signed) Benitez Gomez - 09/12/19 Hip X-Ray (Signed) Benitez Gomez - 09/12/19 Mammogram Screening (Signed) Juan Francisco Yu - 02/04/19 Knee X-Ray (Signed) AlannaDaniel salas - 08/23/18 Mammogram Diagnostic (Signed) Bruce Guadarrama - 12/26/17 [address] [address] XRay Report Signed Patient: Desean Barraza MR#: [id number] : 1945 Acct:[id number] Age/Sex: 77 / F Date of Service: 02/26/22 Loc: Accession Number: [id number] ?? Procedure: XR ribs RT min 3V w CXR1V Ordering Provider: Oscar Mulligan D.O. PROCEDURE:? XR RIBS RT MIN 3V W CXR 1V ? INDICATIONS:? received heimlich yesteray,now having rib pain ? TECHNIQUE:? 2 views of the right ribs were acquired, along with a single view chest.? ? COMPARISON:? None. ? FINDINGS:? ? Surgical changes and devices:? Surgical clips present in the right upper quadrant. ? Bones and chest wall:? No fractures or dislocations.? No suspicious bony lesions.? Overlying soft tissues appear unremarkable.? L1 vertebroplasty noted ? Lungs and pleura:? No pleural effusions or pneumothorax.? Lungs appear clear.? ? Mediastinum:? Mediastinal contours appear normal.? Heart size is normal.? ? IMPRESSION:? ? No acute cardiopulmonary findings.? No evidence of rib fracture. ? Approved by: Sameer Ribeiro M.D. on 02/26/2022 at 17:29? Discharge Plan Departure Patient Disposition: Home Clinical Impression: Closed rib fracture Activity Restrictions/Additional Instructions: *You have been diagnosed with [Right side rib contusion ] *What to do: *Please continue to take your regular medications as directed. [ x] New medication prescriptions sent to your pharmacy: [[facility] in [place] ] [ ] New medication written as a paper prescription [ ] No new medications given *Please follow up with your primary care provider in 2-3 days, call for an appointment. Let them know you were seen in the Emergency Department and that we ask that you be seen in follow up. We will electronically transmit a record of today's note if your PCP is in our system *If you do not have a primary care provider please contact the [facility] Resource line at [phone]. They will ask some questions about your medical history and help get you set up with a doctor in the community. *Return to Emergency Department if you should have any new, worsening or concerning symptoms, such as [fever greater than 101 F, shaking chills, worseni ng pain, persistent vomiting or other bothersome symptoms] You have been prescribed a short course of narcotic medications. These are potentially dangerous and addictive medications that should be used carefully. While on these medications you cannot drive or operate heavy machinery. Additionally, you cannot sign legal documents or perform any duties such as this. Many people get constipated on narcotic medications so it would be advisable to discuss stool softeners with the pharmacist when you waste picker your prescription. Please understand that we cannot provide further refills of narcotics or controlled substances through the ED and your pain management will need to be through your Primary Care Provider Prescriptions: New hydrocodone-acetaminophen 5-325 mg tablet 1 tab PO Q4-6H PRN (Reason: pain) Qty: 20 0RF fluconazole 150 mg tablet 150 mg PO Q3D Qty: 2 2RF Rx Instructions: may repeat second dose 72 hrs after first dose if symptoms persist No Action levothyroxine [Levoxyl] 75 mcg tablet 75 mcg PO DAILY Lactobacillus acidophilus [Acidophilus] capsule 100 mg PO DAILY cholecalciferol (vitamin D3) 2,000 unit capsule 2,000 unit PO DAILY [NEERAJ-C] 500 mg PO QDAY Qty: 0 [CALTRATE] 500 mg PO QDAY Qty: 0 [FISH OIL] 1,000 mg PO TID Qty: 0 MULTIVITAMIN (Multivitamin -) 1 cap PO EVERY DAY Qty: 0 [GLUCOSAMINE] 1,500 mg PO QDAY Qty: 0 mirabegron [Myrbetriq] 50 MG tablet extended release 24 hr 50 mg PO Qty: 0 ibandronate [Boniva] 150 MG tablet 150 mg OR QMONTH Qty: 0 estradiol [Estrace] 0.01 % cream 0.01 % Vaginal HS Qty: 0 bupropion HCl 300 mg tablet extended release 24 hr 300 mg PO QAM Qty: 90 3RF hydroxyzine HCl 25 mg tablet 25 mg PO BEDTIME PRN (Reason: insomnia) Qty: 90 0RF lamotrigine 200 mg tablet 200 mg PO DAILY Qty: 90 1RF trazodone 150 mg tablet 150 mg PO HS Qty: 100 1RF Rx Instructions: OK to take additional 1/2 pill if unable to sleep after 2 hours. 09/01/21 new pill size tamsulosin [Flomax] 0.4 mg capsule 0.4 mg PO DAILY Qty: 10 0RF docusate sodium [Colace] 100 mg capsule 100 mg PO DAILY PRN (Reason: constipation) Qty: 20 0RF hydrocodone-acetaminophen 5-325 mg tablet 1 tab PO Q6H PRN (Reason: pain) Qty: 10 0RF atorvastatin 10 mg TABLET 10 mg PO DAILY valacyclovir 1 gram TABLET 1,000 mg PO DAILY solifenacin 10 mg TABLET 10 mg PO DAILY Referrals: Rosita Roman MD [Primary Care Provider] - Visit Report Forms: Patient Portal/API
[2022-02-26] MEDS: LIDOCAINE PATCH 1 EACH ADH..PATCH TOP (16:55)
--- NOTE | 2022-02-26 16:58 | PC.NURSE ---
pt choking last night and had heimlich performed on her. woke up today with rib pain on right side under breast.
[2022-02-26] MEDS: HYDROCODONE/ACET 5/325 PREPACK 1 BOTTLE MISC (17:32)
[2022-02-26 17:35] VITALS: BP 133/62; PULSE 64; RESP 18; O2SAT 98
[2022-02-26 18:38] VITALS: BP 147/65; PULSE 63; O2SAT 98
== END 2022-02-26 18:43 | disposition home or self-care (01) ==
PROVIDERS: Emergency Provider Emergency Medicine; PCP Family Medicine
DX: S22.31XA Fracture of one rib, right side, initial encounter for closed fracture (principal); X58.XXXA Exposure to other specified factors, initial encounter
CPT/HCPCS: 71101; 81003; 87070; 87205; 87210; 87252; 99283

== ENCOUNTER → 2022-03-10 10:44 | Outpatient (CLI) | payer MEDICARE, OTHER, SELFPAY ==
--- NOTE | 2022-03-10 | DI.MG.S_ITS ---
BILATERAL DIGITAL SCREENING MAMMOGRAM 3D/2D WITH CAD: 03/10/2022 CLINICAL: Routine screening. Family history of breast cancer. Comparison is made to exams dated: 02/08/2021 mammogram, 02/06/2020 mammogram, and 02/04/2019 mammogram - [facility]. There are scattered areas of fibroglandular density in both breasts (category b / 25%-50% glandular tissue). Current study was also evaluated with a Computer Aided Detection (CAD) system. No significant masses, calcifications, or other findings are seen in either breast. There has been no significant interval change. IMPRESSION: NEGATIVE There is no mammographic evidence of malignancy. A 1 year screening mammogram is recommended. Based on the Tyrer Cuzick model (a risk assessment model) the patient's lifetime risk is 5.1% and her 10 year risk is 0.0%. According to the ACR, ACS, and NCCN guidelines, an annual breast MRI exam along with mammogram is recommended if the patient's lifetime risk is 20% or greater. This exam was interpreted at Station ID: [id number]. NOTE: For mammograms, a report in lay terms will be sent to the patient. Approximately 15% of breast malignancies will not be visualized mammographically. In the management of a palpable breast mass, a negative mammogram must not discourage biopsy of a clinically suspicious lesion. Electronically Signed By: Nelsy driscoll/mallory:03/10/2022 12:00:18 letter sent: Normal Exam ACR BI-RADS Category 1: Negative 3341F
== END ==
PROVIDERS: PCP Family Medicine; Referring Provider Family Medicine; Visit Provider Family Medicine
DX: Z12.31 Encounter for screening mammogram for malignant neoplasm of breast (principal); Z80.3 Family history of malignant neoplasm of breast
CPT/HCPCS: 77063; 77067

== ENCOUNTER → 2022-04-04 17:01 | Outpatient (CLI) | payer MEDICARE, OTHER, SELFPAY ==
--- NOTE | 2022-04-04 | DI.RAD.S_ITS ---
PROCEDURE: XR LUMBAR SPINE 2-3V INDICATIONS: Lower back pain TECHNIQUE: 3 views of the lumbar spine were acquired. COMPARISON: [facility], CR, XR LUMBAR SPINE 2-3V, 09/12/2019, 14:22. FINDINGS: Bones: 5 [id number] vertebrae are present. There is slight leftward curvature of lumbar spine centered at L2 level. Chronic appearing compression deformity involving T12 vertebral body is seen with prior kyphoplasty. Degenerative endplate changes are noted throughout lumbar spine more prominent at L2-3 and L4-5 levels. 6 mm anterolisthesis of L5 on S1 is again seen unchanged from prior study. No acute vertebral body compression fractures. No suspicious bony lesions. Soft tissues: Overlying bowel gas pattern is normal. No suspicious soft tissue calcifications. IMPRESSION: 1. Old T12 anterior wedge compression deformity with prior vertebral plasty. No acute vertebral body compression fracture. 2. Mild levoscoliosis and stable 6 mm anterolisthesis at L5-S1 level. Degenerative disc disease throughout lumbar spine. Dictated by: Ajay Vee M.D. on 04/05/2022 at 8:23 Approved by: Ajay Vee M.D. on 04/05/2022 at 8:25
--- NOTE | 2022-04-04 | DI.RAD.S_ITS ---
PROCEDURE: XR RIBS LT 2V INDICATIONS: Pleurodynia TECHNIQUE: 2 views of the left ribs were acquired. COMPARISON: None. FINDINGS: Surgical changes and devices: None. Bones and chest wall: No fractures or dislocations. No suspicious bony lesions. Overlying soft tissues appear unremarkable. Lungs and pleura: The visualized lung appears clear. No pleural effusions or pneumothorax are visible. IMPRESSION: No gross displaced rib fracture or suspicious rib lesion is seen. Visualized left lung field is clear. Dictated by: Ajay Vee M.D. on 04/05/2022 at 8:25 Approved by: Ajay Vee M.D. on 04/05/2022 at 8:25
== END ==
PROVIDERS: PCP Family Medicine; Referring Provider Family Medicine; Visit Provider Family Medicine
DX: R07.81 Pleurodynia (principal); M43.17 Spondylolisthesis, lumbosacral region; M51.36 Other intervertebral disc degeneration, lumbar region; M41.86 Other forms of scoliosis, lumbar region; S22.000A Wedge compression fracture of unspecified thoracic vertebra, initial encounter for closed fracture; M54.50 Low back pain, unspecified; M81.0 Age-related osteoporosis without current pathological fracture
CPT/HCPCS: 71100; 72100

== ENCOUNTER 2022-07-07 15:46 | Emergency (ER) | payer MEDICARE, OTHER, SELFPAY ==
[2022-07-07 15:45] VITALS: BP 144/78; PULSE 70; RESP 20; TEMP 36.7; O2SAT 99; BMI 19.5
--- NOTE | 2022-07-07 16:02 | DI.RAD.S_ITS ---
PROCEDURE: XR CHEST 1V INDICATIONS: Shortness of breath TECHNIQUE: One view of the chest was acquired. COMPARISON: [facility], CR, XR RIBS LT 2V, 04/04/2022, 17:12. [facility], CR, CHEST 2 VIEW, 01/23/2012, 17:36. [facility], CR, XR LUMBAR SPINE 2-3V, 04/04/2022, 17:12. FINDINGS: Surgical changes and devices: T12 vertebroplasty cement can be seen. Cholecystectomy clips are seen. Lungs and pleura: On this semiupright portable chest examination, no large pneumothorax or large pleural effusions are seen. There is minimal, poorly defined opacity seen within the right lower lung. Mediastinum: The cardiac contours are within normal limits. The aorta demonstrates calcification and tortuosity. Bones and chest wall: Age-appropriate bony degenerative changes are seen. No suspicious bony lesions. Overlying soft tissues appear unremarkable. IMPRESSION: Minimal opacity seen within the right lower lung. Please consider developing infiltrate. If clinically appropriate, a short-term followup chest series (with PA and lateral views) performed in deep inspiration is suggested for further evaluation. Postoperative and degenerative changes are seen. Dictated by: Cornell Sun M.D. on 07/07/2022 at 15:43 Approved by: Cornell Sun M.D. on 07/07/2022 at 15:45
[2022-07-07 16:19] LABS: Add Manual Diff / Slide Review NO; Basophils Absolute Auto 100 /uL (0-100); Basophils Percent Auto 0.7 % (0-2); Eosinophils Absolute Auto 200 /uL (0-450); Eosinophils Percent Auto 2.7 % (2-4); Hematocrit 30.3 % (36-46); Hemoglobin 10.4 g/dL (12.0-16.0); Lymphocytes Absolute Auto 1500 /uL (1100-4500); Lymphocytes Percent Auto 18.1 % (25-40); Mean Corpuscular HGB Conc 34.5 % (30-36); Mean Corpuscular Hemoglobin 33.1 PG (26-34); Monocytes Absolute Auto 500 /uL (0-900); Monocytes Percent Auto 6.6 % (3-14); Neutrophils Absolute Auto 5900 /uL (1500-7000); Neutrophils Percent Auto 71.9 % (50-75); Platelet Count 320 X10^3/uL (150-400); Red Blood Cell Count 3.15 X10^6/uL (4.0-5.2); Red Cell Distribution Width 12.8 % (11.6-14.8); White Blood Cell Count 8.2 X10^3/uL (4.5-11.0)
[2022-07-07 16:25] LABS: Appearance Urine UA CLEAR; Bilirubin Urine UA NEGATIVE (NEGATIVE); Color Urine UA YELLOW; Glucose Urine UA NEGATIVE (Negative); Ketones Urine UA NEGATIVE (NEGATIVE); Leukocyte Esterase Urine UA TRACE (NEGATIVE); Nitrite Urine UA NEGATIVE (Negative); Occult Blood Urine UA NEGATIVE (Negative); Protein Urine UA NEGATIVE (Negative); Specific Gravity Urine UA <=1.005 (1.000-1.035); Urobilinogen Urine UA 0.2 E.U./dL (0.2)
[2022-07-07 16:28] LABS: INR 1.1 (0.9-1.3); Prothrombin Time 12.5 SECONDS (10.1-12.7)
[2022-07-07 16:34] LABS: Alanine Aminotransferase 102 IU/L (<35); Albumin 3.5 g/dL (3.5-5.0); Albumin Globulin Ratio 1.2 (1.0-2.8); Alkaline Phosphatase 63 U/L (38-126); Aspartate Aminotransferase 111 IU/L (14-36); BUN Creatinine Ratio 7.2 (6-22); Bilirubin Total 0.7 mg/dL (0.2-1.3); Blood Urea Nitrogen 9 mg/dL (7-17); Calcium 9.7 mg/dL (8.4-10.2); Carbon Dioxide 30 mmol/L (22-32); Chloride 103 mmol/L (98-107); Estimated Glomerular Filt Rate 44 mL/min (>60); Glucose 84 mg/dL (80-110); HEMOLYSIS < 15 (0-50); Potassium 4.2 mmol/L (3.4-5.1); Sodium 140 mmol/L (137-145); Total Protein 6.5 g/dL (6.3-8.2)
[2022-07-07 16:34] LABS: Bacteria Urine None Seen; RBC Urine None Seen (0-5/HPF); Squamous Epithelial Cell Urine 0-1 /HPF (0-5/HPF); WBC Urine None Seen (0-5/HPF)
[2022-07-07 16:35] LABS: Culture Indicated Urine Specimen Cultured
--- NOTE | 2022-07-07 16:36 | ED_ITS ---
HPI - SOB/Dyspnea <Armin Hidalgo PA-C - Last Filed: 07/07/22 20:00> General Chief Complaint: Shortness of Breath/Dyspnea Stated Complaint: SOB, recent pneumonia Time Seen by Provider: 07/07/22 16:12 Source: patient Mode of arrival: EMS Limitations: no limitations History of Present Illness HPI Narrative: This is a 77-year-old female presents emergency department due to an acute episode of shortness of breath earlier this morning. Patient states that she recently traveled to [facility] for a month, returned a week ago, was seen at [facility] where she was admitted for a reported pneumonia, ?collapsed lung, dehydration, and kidney damage?. Patient states she was discharged the next day with a prescription for azithromycin which she is taken as prescribed. Patient reports with clustered come into the emergency department today is an acute episode of ?hyperventilation?. She denies any significant shortness of breath currently, denies chest pain, denies abdominal pain, or any other pain. States that she has some ?small fevers? with a recorded temperature of 99F. Related Data Home Medications Medication Instructions Recorded Confirmed [CALTRATE] 500 mg PO QDAY ##0 01/21/10 03/01/22 [NEERAJ-C] 500 mg PO QDAY ##0 01/21/10 03/01/22 [FISH OIL] 1,000 mg PO TID ##0 01/21/10 03/01/22 MULTIVITAMIN (Multivitamin 1 cap PO EVERY DAY ##0 01/25/10 03/01/22 -) [GLUCOSAMINE] 1,500 mg PO QDAY ##0 01/25/10 03/01/22 mirabegron 50 mg tablet,extended 50 mg PO ##0 06/24/17 03/01/22 release 24 hr (Myrbetriq) estradiol 0.01% (0.1 mg/gram) 0.01 % vaginal HS ##0 07/25/17 03/01/22 vaginal cream (Estrace) ibandronate 150 mg tablet (Boniva) 150 mg OR QMONTH ##0 07/25/17 03/01/22 Lactobacillus acidophilus 100 mg PO DAILY 03/21/18 03/01/22 (Acidophilus capsule) cholecalciferol (vitamin D3) 50 2,000 unit PO DAILY 03/21/18 03/01/22 mcg (2,000 unit) capsule levothyroxine 75 mcg tablet 75 mcg PO DAILY 03/21/18 03/01/22 (Levoxyl) atorvastatin 10 mg tablet 10 mg PO DAILY 01/29/21 03/01/22 solifenacin 10 mg tablet 10 mg PO DAILY 01/29/21 03/01/22 valacyclovir 1 gram tablet 1,000 mg PO DAILY 01/29/21 03/01/22 Previous Rx's Medication Instructions Recorded docusate sodium 100 mg capsule 100 mg PO DAILY PRN constipation 02/08/21 (Colace) #20 caps tamsulosin 0.4 mg capsule (Flomax) 0.4 mg PO DAILY #10 caps 02/08/21 hydrocodone 5 mg-acetaminophen 325 1 tab PO Q6H PRN pain #10 tabs 08/03/21 mg tablet bupropion HCl 300 mg 24 hr tablet, 300 mg PO QAM #90 tabs 10/08/21 extended release fluconazole 150 mg tablet 150 mg PO Q3D 2 doses #2 tabs 02/26/22 hydrocodone 5 mg-acetaminophen 325 1 tab PO Q4-6H PRN pain #20 tabs 02/26/22 mg tablet lamotrigine 200 mg tablet 200 mg PO DAILY 90 days #90 tabs 03/01/22 trazodone 150 mg tablet 150 mg PO HS 90 days #90 tabs 03/01/22 hydroxyzine HCl 50 mg tablet 50 mg PO BEDTIME PRN insomnia 90 05/16/22 days #90 tabs Allergies Allergy/AdvReac Type Severity Reaction Status Date / Time No Known Drug Allergies Allergy Verified 02/26/22 15:55 Review of Systems <Armin Hidalgo PA-C - Last Filed: 07/07/22 20:00> Review of Systems Narrative: GENERAL: Denies chills, fatigue, malaise, fever, sweats. HEENT: Denies sinus pain, ear pain, sore throat, difficulty swallowing, dizziness. RESPIRATORY: Reports shortness of breath, denies cough, wheezing, hemoptysis, sputum. CARDIOVASCULAR: Denies chest pain, palpitations, orthopnea, edema, GASTROINTESTINAL: Denies nausea, vomiting, abdominal pain, diarrhea, constipatio n, melena. : Denies dysuria, frequency, incontinence, hematuria, urinary retention. MUSCULOSKELETAL: denies weakness, joint pain, or bony pain SKIN: Denies rash, skin lesions, or other NEUROLOGIC: Denies weakness, headache, numbness, change in speech, confusion, seizures, incoordination. PSYCHIATRIC: No concerning psychosocial issues. 12 point review of systems is negative except for those stated above Patient History <Armin Hidalgo PA-C - Last Filed: 07/07/22 20:00> Medical History Atrophic vaginitis Bilateral sensorineural hearing loss Bipolar II disorder Cataract fragments in left eye following surgery Cochlear implant in place Constipation Herpes Hypothyroidism Insomnia Mild renal insufficiency Nocturia Urgency incontinence Urinary retention Surgical History H/O: hysterectomy History of bladder suspension procedure History of cholecystectomy History of hysterectomy Hx of breast reduction, elective Social History Smoking Status: Never smoker Smoking Status: Never smoker alcohol intake frequency: holidays/special occasions only Substance Use Type: does not use Exam <Armin Hidalgo PA-C - Last Filed: 07/07/22 20:00> Narrative Exam Narrative: GENERAL: Well-developed patient, in mild distress. HEAD: Atraumatic. Normocephalic. EYES: Pupils equal round and reactive. Extraocular motions intact. No scleral icterus. No injection or drainage. ENT: Nose without bleeding, purulent drainage. Throat without erythema, tonsillar hypertrophy or exudate. Airway patent. NECK: Trachea midline. Non tender CARDIOVASCULAR: Regular rate and rhythm without murmurs, gallops, or rubs. RESPIRATORY: Clear to auscultation. Breath sounds equal bilaterally. No wheezes, rales, or rhonchi. GASTROINTESTINAL: Abdomen soft, non-tender, nondistended. EXTREMITIES: No edema or joint tenderness. BACK: Nontender without deformity or crepitance. No flank tenderness. NEURO: AOx3. SKIN: No rash or erythema of visible areas Initial Vital Signs Initial Vital Signs: Vital Signs Temperature 98.1 F 07/07/22 15:45 Pulse Rate 70 07/07/22 15:45 Respiratory Rate 20 07/07/22 15:45 Blood Pressure 144/78 H 07/07/22 15:45 Pulse Oximetry 99 07/07/22 15:45 Oxygen Delivery Method 07/07/22 15:45 <Sierra Vera DO - Last Filed: 07/11/22 03:06> Initial Vital Signs Initial Vital Signs: Vital Signs Temperature 98.1 F 07/07/22 15:45 Pulse Rate 70 07/07/22 15:45 Respiratory Rate 20 07/07/22 15:45 Blood Pressure 144/78 H 07/07/22 15:45 Pulse Oximetry 99 07/07/22 15:45 Oxygen Delivery Method 07/07/22 15:45 Course <Armin Hidalgo PA-C - Last Filed: 07/07/22 20:00> Orders Ordered: Discontinued Medications Sodium Chloride (Normal Saline 0.9%) 1,000 mls @ 1,000 mls/hr IV BOLUS ONE Stop: 07/07/22 17:38 Last Infusion: 07/07/22 20:00 Dose: 0 mls/hr Documented By: Admin: 07/07/22 17:02 Dose: 250 mls/hr Documented By: CARMELO Vital Signs Vital signs: Vital Signs - 8 hr 07/07/22 15:45 07/07/22 17:01 07/07/22 18:15 Temperature 98.1 F Pulse Rate 70 56 L 58 L Respiratory Rate 20 22 18 Blood Pressure 144/78 H 137/85 146/78 H Pulse Oximetry 99 95 98 Oxygen Delivery Method Room Air Room Air Room Air 07/07/22 19:00 Temperature Pulse Rate 58 L Respiratory Rate 18 Blood Pressure 142/78 H Pulse Oximetry 99 Oxygen Delivery Method Room Air <Sierra Vera DO - Last Filed: 07/11/22 03:06> Orders Ordered: Discontinued Medications Sodium Chloride (Normal Saline 0.9%) 1,000 mls @ 1,000 mls/hr IV BOLUS ONE Stop: 07/07/22 17:38 Last Infusion: 07/07/22 20:00 Dose: 0 mls/hr Documented By: Admin: 07/07/22 17:02 Dose: 250 mls/hr Documented By: CARMELO Vital Signs Vital signs: Vital Signs - 8 hr 07/07/22 15:45 07/07/22 17:01 07/07/22 18:15 Temperature 98.1 F Pulse Rate 70 56 L 58 L Respiratory Rate 20 22 18 Blood Pressure 144/78 H 137/85 146/78 H Pulse Oximetry 99 95 98 Oxygen Delivery Method Room Air Room Air Room Air 07/07/22 19:00 Temperature Pulse Rate 58 L Respiratory Rate 18 Blood Pressure 142/78 H Pulse Oximetry 99 Oxygen Delivery Method Room Air MDM - SOB/Dyspnea <Armin Hidalgo PA-C - Last Filed: 07/07/22 20:00> Lab Data Result diagrams: 07/07/22 16:10 07/07/22 16:10 Labs: Lab Results 07/07/22 07/07/22 07/07/22 Range/Units 16:10 16:10 16:10 WBC 8.2 (4.5-11.0) X10^3/uL RBC 3.15 L (4.0-5.2) X10^6/uL Hgb 10.4 L (12.0-16.0) g/dL Hct 30.3 L (36-46) % MCV 96.0 (80-100) fL MCH 33.1 (26-34) PG MCHC 34.5 (30-36) % RDW 12.8 (11.6-14.8) % Plt Count 320 (150-400) X10^3/uL Neut % (Auto) 71.9 (50-75) % Lymph % (Auto) 18.1 L (25-40) % [facility] [place] % (Auto) 6.6 (3-14) % Eos % (Auto) 2.7 (2-4) % Baso % (Auto) 0.7 (0-2) % Neut # (Auto) 5900 (5165-6289) /uL Lymph # (Auto) 1500 (2339-6729) /uL [facility] [place] # (Auto) 500 (0-900) /uL Eos # (Auto) 200 (0-450) /uL Baso # (Auto) 100 (0-100) /uL PT 12.5 (10.1-12.7) SECONDS INR 1.1 (0.9-1.3) D-Dimer (<500) ng/ml Sodium 140 (137-145) mmol/L Potassium 4.2 (3.4-5.1) mmol/L Chloride 103 (98-107) mmol/L Carbon Dioxide 30 (22-32) mmol/L BUN 9 (7-17) mg/dL Creatinine 1.25 H (0.52-1.04) mg/dL Estimated GFR 44 L (>60) mL/min BUN/Creatinine Ratio 7.2 (6-22) Glucose 84 (80-110) mg/dL Lactate (0.7-2.1) mmol/L Calcium 9.7 (8.4-10.2) mg/dL Total Bilirubin 0.7 (0.2-1.3) mg/dL AST 111 H (14-36) IU/L ALT 102 H (<35) IU/L Alkaline Phosphatase 63 (38-126) U/L Troponin I < 0.012 (0.01-0.034) ng/mL NT-Pro-B Natriuret Pep 1600 H (<450) pg/mL Total Protein 6.5 (6.3-8.2) g/dL Albumin 3.5 (3.5-5.0) g/dL Globulin 3.0 (1.7-4.1) g/dL Albumin/Globulin Ratio 1.2 (1.0-2.8) Urine Color Urine Appearance Urine pH (4.5-8.0) Ur Specific Howell (1.000-1.035) Urine Protein (Negative) Urine Glucose (UA) (Negative) g/dL Urine Ketones (NEGATIVE) Urine Occult Blood (Negative) Urine Nitrate (Negative) Urine Bilirubin (NEGATIVE) Urine Urobilinogen (0.2) E.U./dL Ur Leukocyte Esterase (NEGATIVE) Urine RBC (0-5/HPF) Urine WBC (0-5/HPF) Ur Squamous Epith Cells (0-5/HPF) Urine Bacteria (None) Ur Culture Indicated? Chlamy pneumoniae PCR (Not Detect) Adenovirus (PCR) (Not Detect) B. pertussis DNA (PCR) (Not Detecte) B.parapertussis DNA PCR (Not Detecte) Coronavirus OC43 (PCR) (Not Detect) Coronavirus HKU1 (PCR) (Not Detect) Coronavirus 229E (PCR) (Not Detect) SARS-CoV-2 (PCR) (Not Detecte) Coronavirus NL63 (PCR) (Not Detect) Human Metapneumovir PCR (Not Detect) Influenza Type A (PCR) (Not Detect) Influenza Type B (PCR) (Not Detect) M. pneumoniae (PCR) (Not Detect) Parainfluenza 1 (PCR) (Not Detect) Parainfluenza 2 (PCR) (Not Detect) Parainfluenza 3 (PCR) (Not Detect) Parainfluenza 4 (PCR) (Not Detect) RSV (PCR) (Not Detect) Entero/Rhino (PCR) (Not Detect) 07/07/22 07/07/22 07/07/22 Range/Units 16:10 16:10 16:15 WBC (4.5-11.0) X10^3/uL RBC (4.0-5.2) X10^6/uL Hgb (12.0-16.0) g/dL Hct (36-46) % MCV (80-100) fL MCH (26-34) PG MCHC (30-36) % RDW (11.6-14.8) % Plt Count (150-400) X10^3/uL Neut % (Auto) (50-75) % Lymph % (Auto) (25-40) % [facility] [place] % (Auto) (3-14) % Eos % (Auto) (2-4) % Baso % (Auto) (0-2) % Neut # (Auto) (1925-5306) /uL Lymph # (Auto) (2759-8160) /uL [facility] [place] [facility] # (Auto) (0-900) /uL Eos # (Auto) (0-450) /uL Baso # (Auto) (0-100) /uL PT (10.1-12.7) SECONDS INR (0.9-1.3) D-Dimer 3975 H (<500) ng/ml Sodium (137-145) mmol/L Potassium (3.4-5.1) mmol/L Chloride (98-107) mmol/L Carbon Dioxide (22-32) mmol/L BUN (7-17) mg/dL Creatinine (0.52-1.04) mg/dL Estimated GFR (>60) mL/min BUN/Creatinine Ratio (6-22) Glucose (80-110) mg/dL Lactate 1.0 (0.7-2.1) mmol/L Calcium (8.4-10.2) mg/dL Total Bilirubin (0.2-1.3) mg/dL AST (14-36) IU/L ALT (<35) IU/L Alkaline Phosphatase (38-126) U/L Troponin I (0.01-0.034) ng/mL NT-Pro-B Natriuret Pep (<450) pg/mL Total Protein (6.3-8.2) g/dL Albumin (3.5-5.0) g/dL Globulin (1.7-4.1) g/dL Albumin/Globulin Ratio (1.0-2.8) Urine Color Urine Appearance Urine pH (4.5-8.0) Ur Specific Howell (1.000-1.035) Urine Protein (Negative) Urine Glucose (UA) (Negative) g/dL Urine Ketones (NEGATIVE) Urine Occult Blood (Negative) Urine Nitrate (Negative) Urine Bilirubin (NEGATIVE) Urine Urobilinogen (0.2) E.U./dL Ur Leukocyte Esterase (NEGATIVE) Urine RBC (0-5/HPF) Urine WBC (0-5/HPF) Ur Squamous Epith Cells (0-5/HPF) Urine Bacteria (None) Ur Culture Indicated? Chlamy pneumoniae PCR Not detected (Not Detect) Adenovirus (PCR) Not detected (Not Detect) B. pertussis DNA (PCR) Not detected (Not Detecte) B.parapertussis DNA PCR Not detected (Not Detecte) Coronavirus OC43 (PCR) Not detected (Not Detect) Coronavirus HKU1 (PCR) Not detected (Not Detect) Coronavirus 229E (PCR) Not detected (Not Detect) SARS-CoV-2 (PCR) Not detected (Not Detecte) Coronavirus NL63 (PCR) Not detected (Not Detect) Human Metapneumovir PCR Not detected (Not Detect) Influenza Type A (PCR) Not detected (Not Detect) Influenza Type B (PCR) Not detected (Not Detect) M. pneumoniae (PCR) Not detected (Not Detect) Parainfluenza 1 (PCR) Not detected (Not Detect) Parainfluenza 2 (PCR) Not detected (Not Detect) Parainfluenza 3 (PCR) Not detected (Not Detect) Parainfluenza 4 (PCR) Not detected (Not Detect) RSV (PCR) Not detected (Not Detect) Entero/Rhino (PCR) Not detected (Not Detect) 07/07/22 Range/Units 16:22 WBC (4.5-11.0) X10^3/uL RBC (4.0-5.2) X10^6/uL Hgb (12.0-16.0) g/dL Hct (36-46) % MCV (80-100) fL MCH (26-34) PG MCHC (30-36) % RDW (11.6-14.8) % Plt Count (150-400) X10^3/uL Neut % (Auto) (50-75) % Lymph % (Auto) (25-40) % [facility] % (Auto) (3-14) % Eos % (Auto) (2-4) % Baso % (Auto) (0-2) % Neut # (Auto) (6890-2825) /uL Lymph # (Auto) (4138-6274) /uL [facility] # (Auto) (0-900) /uL Eos # (Auto) (0-450) /uL Baso # (Auto) (0-100) /uL PT (10.1-12.7) SECONDS INR (0.9-1.3) D-Dimer (<500) ng/ml Sodium (137-145) mmol/L Potassium (3.4-5.1) mmol/L Chloride (98-107) mmol/L Carbon Dioxide (22-32) mmol/L BUN (7-17) mg/dL Creatinine (0.52-1.04) mg/dL Estimated GFR (>60) mL/min BUN/Creatinine Ratio (6-22) Glucose (80-110) mg/dL Lactate (0.7-2.1) mmol/L Calcium (8.4-10.2) mg/dL Total Bilirubin (0.2-1.3) mg/dL AST (14-36) IU/L ALT (<35) IU/L Alkaline Phosphatase (38-126) U/L Troponin I (0.01-0.034) ng/mL NT-Pro-B Natriuret Pep (<450) pg/mL Total Protein (6.3-8.2) g/dL Albumin (3.5-5.0) g/dL Globulin (1.7-4.1) g/dL Albumin/Globulin Ratio (1.0-2.8) Urine Color Yellow Urine Appearance Clear Urine pH 7.0 (4.5-8.0) Ur Specific Howell <=1.005 (1.000-1.035) Urine Protein Negative (Negative) Urine Glucose (UA) Negative (Negative) g/dL Urine Ketones Negative (NEGATIVE) Urine Occult Blood Negative (Negative) Urine Nitrate Negative (Negative) Urine Bilirubin Negative (NEGATIVE) Urine Urobilinogen 0.2 (0.2) E.U./dL Ur Leukocyte Esterase Trace H (NEGATIVE) Urine RBC None seen (0-5/HPF) Urine WBC None seen (0-5/HPF) Ur Squamous Epith Cells 0-1 /hpf (0-5/HPF) Urine Bacteria None seen (None) Ur Culture Indicated? Specimen cultured Chlamy pneumoniae PCR (Not Detect) Adenovirus (PCR) (Not Detect) B. pertussis DNA (PCR) (Not Detecte) B.parapertussis DNA PCR (Not Detecte) Coronavirus OC43 (PCR) (Not Detect) Coronavirus HKU1 (PCR) (Not Detect) Coronavirus 229E (PCR) (Not Detect) SARS-CoV-2 (PCR) (Not Detecte) Coronavirus NL63 (PCR) (Not Detect) Human Metapneumovir PCR (Not Detect) Influenza Type A (PCR) (Not Detect) Influenza Type B (PCR) (Not Detect) M. pneumoniae (PCR) (Not Detect) Parainfluenza 1 (PCR) (Not Detect) Parainfluenza 2 (PCR) (Not Detect) Parainfluenza 3 (PCR) (Not Detect) Parainfluenza 4 (PCR) (Not Detect) RSV (PCR) (Not Detect) Entero/Rhino (PCR) (Not Detect) Imaging Data CT scan - abdomen/pelvis: Radiologist's Impression: [place] [address] CT Scan Report Signed Patient: Desean Barraza MR#: [id number] : 1945 Acct:[id number] Age/Sex: 77 / F Date of Service: 07/07/22 Loc: ED Accession Number: [id number] ?? Procedure: CT angio chest PE protocol Ordering Provider: Armin Hidalgo P.A-C PROCEDURE:? CT ANGIO CHEST PE PROTOCOL ? INDICATIONS:? Shortness of breath and positive D dimer ? TECHNIQUE:? After the administration of intravenous contrast, 2 mm thick sections acquired from the pulmonary apices to the posterior costophrenic angles.? 3-dimensional maximum intensity projection (MIP) coronal and sagittal reformats were then acquired through the thorax.? For radiation dose reduction, the following was used:? automated exposure control, adjustment of mA and/or kV according to patient size.? ? COMPARISON:? [facility], XR CHEST 1V, 07/07/2022, 16:14. ? FINDINGS: ? No pulmonary embolism identified.? No thoracic aorta aneurysm.? No pericardial effusion. ? Small right and trace left pleural effusions.? Mild interlobular septal thickening.? Consolidative and ground-glass opacity present at the right lower lobe, patchy ground-glass opacity present at the left upper lobe. ? Prior cholecystectomy.? Degenerative changes of the spine, prior T12 vertebroplasty. ? ? IMPRESSION:? 1. No pulmonary embolism identified. 2. Small right and trace left pleural effusions with evidence of interstitial pulmonary edema.? Patchy ground-glass and consolidative opacities present at the right lower lobe and left upper lobe are nonspecific, could represent alveolar edema or multifocal pneumonia.? ? ? Dictated by: Trung Church M.D. on 07/07/2022 at 18:46 ? ? Approved by: Trung Church M.D. on 07/07/2022 at 18:58 ? Chest x-ray: Radiologist's Impression: [place] [address] XRay Report Signed Patient: Desean Barraza MR#: [id number] : 1945 Acct:[id number] Age/Sex: 77 / F Date of Service: 07/07/22 Loc: ED Accession Number: [id number] ?? Procedure: XR chest 1V Ordering Provider: Sierra Vera D.O. PROCEDURE:? XR CHEST 1V ? INDICATIONS:? Shortness of breath ? TECHNIQUE:? One view of the chest was acquired.? ? COMPARISON:? [facility], XR RIBS LT 2V, 04/04/2022, 17:12.? [facility], CHEST 2 VIEW, 01/23/2012, 17:36.? [facility], XR LUMBAR SPINE 2-3V, 04/04/2022, 17:12. ? FINDINGS:? ? Surgical changes and devices:? T12 vertebroplasty cement can be seen. Cholecystectomy clips are seen.? ? Lungs and pleura:? On this semiupright portable chest examination, no large pneumothorax or large pleural effusions are seen.? There is minimal, poorly defined opacity seen within the right lower lung. ? Mediastinum:? The cardiac contours are within normal limits. The aorta demonstrates calcification and tortuosity. ? Bones and chest wall:? Age-appropriate bony degenerative changes are seen.? No suspicious bony lesions.? Overlying soft tissues appear unremarkable.? IMPRESSION:? Minimal opacity seen within the right lower lung.? Please consider developing infiltrate. ? If clinically appropriate, a short-term followup chest series (with PA and lateral views) performed in deep inspiration is suggested for further evaluation.? ? Postoperative and degenerative changes are seen.? ? ? Dictated by: Cornell Sun M.D. on 07/07/2022 at 15:43 ? ? Approved by: Cornell Sun M.D. on 07/07/2022 at 15:45 ? MDM Narrative Medical decision making narrative: This is a 77-year-old female presents emergency department due to an episode of shortness of breath as well as ?feeling crummy?. She reports continued diarrhea since she is came back from [place]. Patient states that she was seen at the [facility] a week ago, admitted for 1 night, and discharged with azithromycin due to a pneumonia. Patient is returning today due to an episode of shortness of breath and frustration due to her continued generalized symptoms. Chest x-ray initially taken as well as a CT PE due to elevated D- dimer. CT PE showed patchy ground-glass opacities which are nonspecific. Due to lack of white blood cell count, and afebrile, will not treat with further antibiotics as patient did complete a recent course. Recommend she follow up with her primary care provider to provide a stool sample as she was unable to provide 1 now to workup the continued diarrhea. Recommended [id number] Pepto-Bismol. Patient was comfortable with this discharge plan. All other lab work unremarkable. <Sierra Vera, DO - Last Filed: 07/11/22 03:06> Lab Data Labs: Lab Results 07/07/22 07/07/22 07/07/22 Range/Units 16:10 16:10 16:10 WBC 8.2 (4.5-11.0) X10^3/uL RBC 3.15 L (4.0-5.2) X10^6/uL Hgb 10.4 L (12.0-16.0) g/dL Hct 30.3 L (36-46) % MCV 96.0 (80-100) fL MCH 33.1 (26-34) PG MCHC 34.5 (30-36) % RDW 12.8 (11.6-14.8) % Plt Count 320 (150-400) X10^3/uL Neut % (Auto) 71.9 (50-75) % Lymph % (Auto) 18.1 L (25-40) % [facility] [place] % (Auto) 6.6 (3-14) % Eos % (Auto) 2.7 (2-4) % Baso % (Auto) 0.7 (0-2) % Neut # (Auto) 5900 (7877-2803) /uL Lymph # (Auto) 1500 (7600-8907) /uL [facility] [place] # (Auto) 500 (0-900) /uL Eos # (Auto) 200 (0-450) /uL Baso # (Auto) 100 (0-100) /uL PT 12.5 (10.1-12.7) SECONDS INR 1.1 (0.9-1.3) D-Dimer (<500) ng/ml Sodium 140 (137-145) mmol/L Potassium 4.2 (3.4-5.1) mmol/L Chloride 103 (98-107) mmol/L Carbon Dioxide 30 (22-32) mmol/L BUN 9 (7-17) mg/dL Creatinine 1.25 H (0.52-1.04) mg/dL Estimated GFR 44 L (>60) mL/min BUN/Creatinine Ratio 7.2 (6-22) Glucose 84 (80-110) mg/dL Lactate (0.7-2.1) mmol/L Calcium 9.7 (8.4-10.2) mg/dL Total Bilirubin 0.7 (0.2-1.3) mg/dL AST 111 H (14-36) IU/L ALT 102 H (<35) IU/L Alkaline Phosphatase 63 (38-126) U/L Troponin I < 0.012 (0.01-0.034) ng/mL NT-Pro-B Natriuret Pep 1600 H (<450) pg/mL Total Protein 6.5 (6.3-8.2) g/dL Albumin 3.5 (3.5-5.0) g/dL Globulin 3.0 (1.7-4.1) g/dL Albumin/Globulin Ratio 1.2 (1.0-2.8) Urine Color Urine Appearance Urine pH (4.5-8.0) Ur Specific Howell (1.000-1.035) Urine Protein (Negative) Urine Glucose (UA) (Negative) g/dL Urine Ketones (NEGATIVE) Urine Occult Blood (Negative) Urine Nitrate (Negative) Urine Bilirubin (NEGATIVE) Urine Urobilinogen (0.2) E.U./dL Ur Leukocyte Esterase (NEGATIVE) Urine RBC (0-5/HPF) Urine WBC (0-5/HPF) Ur Squamous Epith Cells (0-5/HPF) Urine Bacteria (None) Ur Culture Indicated? Chlamy pneumoniae PCR (Not Detect) Adenovirus (PCR) (Not Detect) B. pertussis DNA (PCR) (Not Detecte) B.parapertussis DNA PCR (Not Detecte) Coronavirus OC43 (PCR) (Not Detect) Coronavirus HKU1 (PCR) (Not Detect) Coronavirus 229E (PCR) (Not Detect) SARS-CoV-2 (PCR) (Not Detecte) Coronavirus NL63 (PCR) (Not Detect) Human Metapneumovir PCR (Not Detect) Influenza Type A (PCR) (Not Detect) Influenza Type B (PCR) (Not Detect) M. pneumoniae (PCR) (Not Detect) Parainfluenza 1 (PCR) (Not Detect) Parainfluenza 2 (PCR) (Not Detect) Parainfluenza 3 (PCR) (Not Detect) Parainfluenza 4 (PCR) (Not Detect) RSV (PCR) (Not Detect) Entero/Rhino (PCR) (Not Detect) 07/07/22 07/07/22 07/07/22 Range/Units 16:10 16:10 16:15 WBC (4.5-11.0) X10^3/uL RBC (4.0-5.2) X10^6/uL Hgb (12.0-16.0) g/dL Hct (36-46) % MCV (80-100) fL MCH (26-34) PG MCHC (30-36) % RDW (11.6-14.8) % Plt Count (150-400) X10^3/uL Neut % (Auto) (50-75) % Lymph % (Auto) (25-40) % [facility] [place] [facility] % (Auto) (3-14) % Eos % (Auto) (2-4) % Baso % (Auto) (0-2) % Neut # (Auto) (6554-3031) /uL Lymph # (Auto) (9389-6411) /uL [facility] # (Auto) (0-900) /uL Eos # (Auto) (0-450) /uL Baso # (Auto) (0-100) /uL PT (10.1-12.7) SECONDS INR (0.9-1.3) D-Dimer 3975 H (<500) ng/ml Sodium (137-145) mmol/L Potassium (3.4-5.1) mmol/L Chloride (98-107) mmol/L Carbon Dioxide (22-32) mmol/L BUN (7-17) mg/dL Creatinine (0.52-1.04) mg/dL Estimated GFR (>60) mL/min BUN/Creatinine Ratio (6-22) Glucose (80-110) mg/dL Lactate 1.0 (0.7-2.1) mmol/L Calcium (8.4-10.2) mg/dL Total Bilirubin (0.2-1.3) mg/dL AST (14-36) IU/L ALT (<35) IU/L Alkaline Phosphatase (38-126) U/L Troponin I (0.01-0.034) ng/mL NT-Pro-B Natriuret Pep (<450) pg/mL Total Protein (6.3-8.2) g/dL Albumin (3.5-5.0) g/dL Globulin (1.7-4.1) g/dL Albumin/Globulin Ratio (1.0-2.8) Urine Color Urine Appearance Urine pH (4.5-8.0) Ur Specific Howell (1.000-1.035) Urine Protein (Negative) Urine Glucose (UA) (Negative) g/dL Urine Ketones (NEGATIVE) Urine Occult Blood (Negative) Urine Nitrate (Negative) Urine Bilirubin (NEGATIVE) Urine Urobilinogen (0.2) E.U./dL Ur Leukocyte Esterase (NEGATIVE) Urine RBC (0-5/HPF) Urine WBC (0-5/HPF) Ur Squamous Epith Cells (0-5/HPF) Urine Bacteria (None) Ur Culture Indicated? Chlamy pneumoniae PCR Not detected (Not Detect) Adenovirus (PCR) Not detected (Not Detect) B. pertussis DNA (PCR) Not detected (Not Detecte) B.parapertussis DNA PCR Not detected (Not Detecte) Coronavirus OC43 (PCR) Not detected (Not Detect) Coronavirus HKU1 (PCR) Not detected (Not Detect) Coronavirus 229E (PCR) Not detected (Not Detect) SARS-CoV-2 (PCR) Not detected (Not Detecte) Coronavirus NL63 (PCR) Not detected (Not Detect) Human Metapneumovir PCR Not detected (Not Detect) Influenza Type A (PCR) Not detected (Not Detect) Influenza Type B (PCR) Not detected (Not Detect) M. pneumoniae (PCR) Not detected (Not Detect) Parainfluenza 1 (PCR) Not detected (Not Detect) Parainfluenza 2 (PCR) Not detected (Not Detect) Parainfluenza 3 (PCR) Not detected (Not Detect) Parainfluenza 4 (PCR) Not detected (Not Detect) RSV (PCR) Not detected (Not Detect) Entero/Rhino (PCR) Not detected (Not Detect) 07/07/22 Range/Units 16:22 WBC (4.5-11.0) X10^3/uL RBC (4.0-5.2) X10^6/uL Hgb (12.0-16.0) g/dL Hct (36-46) % MCV (80-100) fL MCH (26-34) PG MCHC (30-36) % RDW (11.6-14.8) % Plt Count (150-400) X10^3/uL Neut % (Auto) (50-75) % Lymph % (Auto) (25-40) % [facility] [place] [facility] % (Auto) (3-14) % Eos % (Auto) (2-4) % Baso % (Auto) (0-2) % Neut # (Auto) (5832-0917) /uL Lymph # (Auto) (7633-1128) /uL [facility] # (Auto) (0-900) /uL Eos # (Auto) (0-450) /uL Baso # (Auto) (0-100) /uL PT (10.1-12.7) SECONDS INR (0.9-1.3) D-Dimer (<500) ng/ml Sodium (137-145) mmol/L Potassium (3.4-5.1) mmol/L Chloride (98-107) mmol/L Carbon Dioxide (22-32) mmol/L BUN (7-17) mg/dL Creatinine (0.52-1.04) mg/dL Estimated GFR (>60) mL/min BUN/Creatinine Ratio (6-22) Glucose (80-110) mg/dL Lactate (0.7-2.1) mmol/L Calcium (8.4-10.2) mg/dL Total Bilirubin (0.2-1.3) mg/dL AST (14-36) IU/L ALT (<35) IU/L Alkaline Phosphatase (38-126) U/L Troponin I (0.01-0.034) ng/mL NT-Pro-B Natriuret Pep (<450) pg/mL Total Protein (6.3-8.2) g/dL Albumin (3.5-5.0) g/dL Globulin (1.7-4.1) g/dL Albumin/Globulin Ratio (1.0-2.8) Urine Color Yellow Urine Appearance Clear Urine pH 7.0 (4.5-8.0) Ur Specific Howell <=1.005 (1.000-1.035) Urine Protein Negative (Negative) Urine Glucose (UA) Negative (Negative) g/dL Urine Ketones Negative (NEGATIVE) Urine Occult Blood Negative (Negative) Urine Nitrate Negative (Negative) Urine Bilirubin Negative (NEGATIVE) Urine Urobilinogen 0.2 (0.2) E.U./dL Ur Leukocyte Esterase Trace H (NEGATIVE) Urine RBC None seen (0-5/HPF) Urine WBC None seen (0-5/HPF) Ur Squamous Epith Cells 0-1 /hpf (0-5/HPF) Urine Bacteria None seen (None) Ur Culture Indicated? Specimen cultured Chlamy pneumoniae PCR (Not Detect) Adenovirus (PCR) (Not Detect) B. pertussis DNA (PCR) (Not Detecte) B.parapertussis DNA PCR (Not Detecte) Coronavirus OC43 (PCR) (Not Detect) Coronavirus HKU1 (PCR) (Not Detect) Coronavirus 229E (PCR) (Not Detect) SARS-CoV-2 (PCR) (Not Detecte) Coronavirus NL63 (PCR) (Not Detect) Human Metapneumovir PCR (Not Detect) Influenza Type A (PCR) (Not Detect) Influenza Type B (PCR) (Not Detect) M. pneumoniae (PCR) (Not Detect) Parainfluenza 1 (PCR) (Not Detect) Parainfluenza 2 (PCR) (Not Detect) Parainfluenza 3 (PCR) (Not Detect) Parainfluenza 4 (PCR) (Not Detect) RSV (PCR) (Not Detect) Entero/Rhino (PCR) (Not Detect) Discharge Plan Departure Patient Disposition: Home Clinical Impression: Acute dyspnea Activity Restrictions/Additional Instructions: Thank you for coming to the [facility] Emergency Department today. As we discussed I recommend you follow-up with your primary care doctor for a stool study to further investigate this diarrhea. The CT showed no evidence of a blood clot that would cause the shortness of breath. I suspect his symptoms you are having are residual from the recent illness you experience. Please follow- up with your primary care provider if symptoms continue for further evaluation. At this time there are no life-threatening disease processes. Your lab work was unremarkable and showed no evidence of infection or electrolyte abnormality. Your cardiac workup was also negative for any kind of cardiac issue. I recommend you take Pepto-Bismol for the diarrhea. I hope you feel better soon. Prescriptions: No Action levothyroxine [Levoxyl] 75 mcg tablet 75 mcg PO DAILY Lactobacillus acidophilus [Acidophilus] capsule 100 mg PO DAILY cholecalciferol (vitamin D3) 2,000 unit capsule 2,000 unit PO DAILY lamotrigine 200 mg tablet 200 mg PO DAILY 90 Days Qty: 90 3RF trazodone 150 mg tablet 150 mg PO HS 90 Days Qty: 90 3RF Rx Instructions: OK to take additional 1/2 pill if unable to sleep after 2 hours [NEERAJ-C] 500 mg PO QDAY Qty: 0 [CALTRATE] 500 mg PO QDAY Qty: 0 [FISH OIL] 1,000 mg PO TID Qty: 0 MULTIVITAMIN (Multivitamin -) 1 cap PO EVERY DAY Qty: 0 [GLUCOSAMINE] 1,500 mg PO QDAY Qty: 0 mirabegron [Myrbetriq] 50 MG tablet extended release 24 hr 50 mg PO Qty: 0 ibandronate [Boniva] 150 MG tablet 150 mg OR QMONTH Qty: 0 estradiol [Estrace] 0.01 % cream 0.01 % Vaginal HS Qty: 0 bupropion HCl 300 mg tablet extended release 24 hr 300 mg PO QAM Qty: 90 3RF hydroxyzine HCl 50 mg tablet 50 mg PO BEDTIME PRN (Reason: insomnia) 90 Days Qty: 90 0RF tamsulosin [Flomax] 0.4 mg capsule 0.4 mg PO DAILY Qty: 10 0RF docusate sodium [Colace] 100 mg capsule 100 mg PO DAILY PRN (Reason: constipation) Qty: 20 0RF hydrocodone-acetaminophen 5-325 mg tablet 1 tab PO Q6H PRN (Reason: pain) Qty: 10 0RF hydrocodone-acetaminophen 5-325 mg tablet 1 tab PO Q4-6H PRN (Reason: pain) Qty: 20 0RF fluconazole 150 mg tablet 150 mg PO Q3D Qty: 2 2RF Rx Instructions: may repeat second dose 72 hrs after first dose if symptoms persist atorvastatin 10 mg TABLET 10 mg PO DAILY valacyclovir 1 gram TABLET 1,000 mg PO DAILY solifenacin 10 mg TABLET 10 mg PO DAILY Referrals: Rosita Roman MD [Primary Care Provider] - Stand Alone Forms: Patient Portal/API <Sierra Vera DO - Last Filed: 07/11/22 03:06> Cosign ED Attending Carlotaature Attestation: I was immediately available in the department for consultation. Documentation has been reviewed. Patient case was discussed. Plan to hold additional antibiotics as patient is just completed antibiotics and can be from recent known pneumonia.
[2022-07-07 16:44] LABS: NT-proBNP (BNP-Adult 18+) 1600 pg/mL (<450); Troponin I < 0.012 ng/mL (0.01-0.034)
[2022-07-07 16:45] LABS: D Dimer 3975 ng/ml (<500)
--- NOTE | 2022-07-07 16:48 | DI.CT.S_ITS ---
PROCEDURE: CT ANGIO CHEST PE PROTOCOL INDICATIONS: Shortness of breath and positive D dimer TECHNIQUE: After the administration of intravenous contrast, 2 mm thick sections acquired from the pulmonary apices to the posterior costophrenic angles. 3-dimensional maximum intensity projection (MIP) coronal and sagittal reformats were then acquired through the thorax. For radiation dose reduction, the following was used: automated exposure control, adjustment of mA and/or kV according to patient size. COMPARISON: [facility], CR, XR CHEST 1V, 07/07/2022, 16:14. FINDINGS: No pulmonary embolism identified. No thoracic aorta aneurysm. No pericardial effusion. Small right and trace left pleural effusions. Mild interlobular septal thickening. Consolidative and ground-glass opacity present at the right lower lobe, patchy ground-glass opacity present at the left upper lobe. Prior cholecystectomy. Degenerative changes of the spine, prior T12 vertebroplasty. IMPRESSION: 1. No pulmonary embolism identified. 2. Small right and trace left pleural effusions with evidence of interstitial pulmonary edema. Patchy ground-glass and consolidative opacities present at the right lower lobe and left upper lobe are nonspecific, could represent alveolar edema or multifocal pneumonia. Dictated by: Trung Church M.D. on 07/07/2022 at 18:46 Approved by: Trung Church M.D. on 07/07/2022 at 18:58
[2022-07-07 17:01] VITALS: BP 137/85; PULSE 56; RESP 22; O2SAT 95
[2022-07-07] MEDS: SODIUM CHLORIDE 0.9% 1,000 ML 250 ML IV (17:02)
[2022-07-07 17:21] LABS: Adenovirus Not Detected (Not Detect); B. parapertussis Not Detected (Not Detecte); Bordetella pertussis Not Detected (Not Detecte); Chlamydophila pneumoniae Not Detected (Not Detect); Coronavirus 229E Not Detected (Not Detect); Coronavirus HKU1 Not Detected (Not Detect); Coronavirus NL 63 Not Detected (Not Detect); Coronavirus OC43 Not Detected (Not Detect); Human Metapneumovirus Not Detected (Not Detect); Human Rhinovirus/Enterovirus Not Detected (Not Detect); Influenza A Not Detected (Not Detect); Influenza B Not Detected (Not Detect); Mycoplasma pneumoniae Not Detected (Not Detect); Parainfluenza Virus 1 Not Detected (Not Detect); Parainfluenza Virus 2 Not Detected (Not Detect); Parainfluenza Virus 3 Not Detected (Not Detect); Parainfluenza Virus 4 Not Detected (Not Detect); Respiratory Syncytial Virus Not Detected (Not Detect); SARS- CoV-2 Not Detected (Not Detecte)
[2022-07-07 18:15] VITALS: BP 146/78; PULSE 58; RESP 18; O2SAT 98
[2022-07-07 19:00] VITALS: BP 142/78; PULSE 58; RESP 18; O2SAT 99
[2022-07-07 20:03] VITALS: BP 148/78; PULSE 60; RESP 17; O2SAT 99
== END 2022-07-07 20:05 | disposition home or self-care (01) ==
PROVIDERS: Emergency Medicine; Emergency Provider Physician Assistant Medical; PCP Family Medicine
DX: R06.00 Dyspnea, unspecified (principal); R19.7 Diarrhea, unspecified; Z20.822 Contact with and (suspected) exposure to COVID-19
CPT/HCPCS: 36415; 71045; 71275; 80053; 81001; 83605; 83880; 84484; 85025; 85379; 85610; 87086; 87633; 93005; 96360; 96361; 99284; Q9967

== ENCOUNTER 2022-08-08 08:42 | Day surgery (SDC) | payer MEDICARE, OTHER, SELFPAY ==
[2022-08-08] VITALS (7 sets, daily range): BP systolic 86–120; BP diastolic 40–66; PULSE 57–70; RESP 13–20; TEMP 36.3–36.5; O2SAT 95–99; BMI 17.9
--- NOTE | 2022-08-08 | PATH_ITS ---
[facility] Accession Number: [id number] No. of containers..01 Tissue . 01 Material submitted: . colon - RANDOM COLON BIOPSIES . 01 Diagnosis: Random Colon, Biopsies: Colonic mucosa with no diagnostic abnormality. Negative for active, chronic, and microscopic colitis. Negative for dysplasia and malignancy. . MRV 08/12/2022 1319 Local . 01 Electronically signed: . Lsiseth Rangel MD, Pathologist NPI- [id number] . 01 Gross description: . RANDOM COLON BIOPSIES: Received in formalin is 1 fragment(s) of espinoza, soft tissue measuring 0.3 x 0.1 x 0.1 cm submitted entirely in 1 cassette(s) /COLLIN 08/09/2022 1854 Local . 01 Pathologist provided ICD-10: R10.9 . 01 CPT . 422423 Specimen Comment: A courtesy copy of this report has been sent to [phone], [phone] Specimen Comment: 2055 Performed at: [facility] [address] [place] [address], [place], [place] [id number] MD Bruce Banegas MD Phone: [phone]
[2022-08-08] MEDS: LACTATED RINGERS 1,000 ML 84 ML IV (09:49)
--- NOTE | 2022-08-08 10:23 | P.HP_ITS ---
History of Present Illness History of Present Illness Date Patient Seen: 08/08/22 Time Patient Seen: 10:23 Chief complaint: SDC Narrative: I reviewed the recent office note. Diarrhea x5 weeks. Patient History Medical History Atrophic vaginitis Bilateral sensorineural hearing loss Bipolar II disorder Cataract fragments in left eye following surgery Cochlear implant in place Constipation Herpes Hypothyroidism Insomnia Mild renal insufficiency Nocturia Urgency incontinence Urinary retention Surgical History H/O: hysterectomy History of bladder suspension procedure History of cholecystectomy History of hysterectomy Hx of breast reduction, elective Status post kyphoplasty Family & Social History Tobacco & Substance use: Smoking Status Never smoker alcohol intake former alcohol intake frequency holiday/special occasion Substance Use Type does not use Meds Home Medications and Allergies Home Medications Medication Instructions Recorded Confirmed Type [CALTRATE] 500 mg PO QDAY ##0 01/21/10 08/08/22 History [NEERAJ-C] 500 mg PO QDAY ##0 01/21/10 08/08/22 History [FISH OIL] 1,000 mg PO TID ##0 01/21/10 08/08/22 History MULTIVITAMIN (Multivitamin 1 cap PO EVERY DAY ##0 01/25/10 08/08/22 History -) [GLUCOSAMINE] 1,500 mg PO QDAY ##0 01/25/10 08/08/22 History mirabegron 50 mg tablet,extended 50 mg PO DAILY ##0 06/24/17 08/08/22 History release 24 hr (Myrbetriq) estradiol 0.01% (0.1 mg/gram) 0.01 % vaginal HS ##0 07/25/17 08/08/22 History vaginal cream (Estrace) ibandronate 150 mg tablet (Boniva) 150 mg OR QMONTH ##0 07/25/17 08/08/22 His tory Lactobacillus acidophilus 100 mg PO DAILY 03/21/18 08/08/22 History (Acidophilus capsule) cholecalciferol (vitamin D3) 50 2,000 unit PO DAILY 03/21/18 08/08/22 History mcg (2,000 unit) capsule levothyroxine 75 mcg tablet 75 mcg PO DAILY 03/21/18 08/08/22 History (Levoxyl) atorvastatin 10 mg tablet 10 mg PO DAILY 01/29/21 08/08/22 History valacyclovir 1 gram tablet 1,000 mg PO DAILY 01/29/21 08/08/22 History bupropion HCl 300 mg 24 hr tablet, 300 mg PO QAM #90 tabs 10/08/21 08/08/22 Rx extended release lamotrigine 200 mg tablet 200 mg PO DAILY 90 days #90 tabs 03/01/22 08/08/22 Rx trazodone 150 mg tablet 150 mg PO HS 90 days #90 tabs 03/01/22 08/08/22 Rx hydroxyzine HCl 50 mg tablet 50 mg PO BEDTIME PRN insomnia 90 08/01/22 08/08/22 Rx days #90 tabs Allergies Allergy/AdvReac Type Severity Reaction Status Date / Time No Known Drug Allergies Allergy Verified 08/08/22 09:20 Review of Systems Review of Systems ROS: Yes All systems reviewed with the patient and are negative except as otherwise documented Exam Vital Signs (past 8 hours): - 08/08/22 09:46 Temperature 97.7 F Pulse Rate 70 Respiratory Rate 16 Blood Pressure 111/66 Pulse Oximetry 99 Oxygen Delivery Method Room Air Oxygen Delivery Method Room Air Const General: cooperative HENMT Head: normal to inspection Eyes General: appearance normal, both eyes and all related structures Neck Neck: normal visual inspection Chest Chest: normal inspection of the chest Resp Effort & Inspection: normal respiratory effort Cardio Rate: regular rate GI Inspection: normal to inspection Skin General: no rashes or lesions noted Neuro General: patient alert and patient awake Extrem General: normal to inspection and no pedal edema Psych Appearance: grossly normal Assessment & Plan Assessment & Plan narrative: 77-year-old female with diarrhea. Colonoscopy is planned today. Time Spent With Patient Critical Care time: I spent a total of [] minutes of critical care time on this patient's care today; this time is exclusive of procedural time.
--- NOTE | 2022-08-08 10:26 | PM.PREOP ---
Pre-operative Note Interval Note History & Physical reviewed/Exam performed by Physician: Yes Changes to H&P: No ASA Class (for procedural sedation): III
--- NOTE | 2022-08-08 11:18 | PM.OP.COLON ---
Operative Date/Time/Diagnoses Date of procedure: 08/08/22 Time of procedure: 11:18 Pre-op diagnosis: Diarrhea Post-op diagnosis: same Procedure & Clinicians Study performed: Colonoscopy with biopsies Same procedure as scheduled: Yes Indications: Diarrhea Surgeon: Antwan Aviles Procedure Notes SCOAP/Timeout: Done Procedure in detail: After the risks and benefits were explained, written and verbal informed consent was obtained. The patient was brought into the procedure room and placed into the left lateral decubitus position. Please see anesthesia note for sedation details. Digital rectal examination was accomplished. The scope was introduced into the patient and advanced under direct visualization to the cecum as identified by the appendiceal orifice and ileocecal valve. The scope was slowly withdrawn to carefully examine the mucosa for any defects or lesions. Comprehensive imaging was accomplished throughout the rectum including the dentate line. The colon was decompressed, the scope was then removed from the patient who tolerated the procedure well. Pediatric colonoscope Bowel prep adequate Scope withdrawal time: 10 minutes Sedation minutes: 31 Complications: none Impression: The patient had an incredibly tortuous colon. Navigation was quite challenging. No procto colitis visualized. Random colon biopsies were taken for exclusion of microscopic colitis. No significant polyps identified throughout. Grade 2 hemorrhoids were noted on direct views. It was very difficult to get the tip of the scope to navigate fully up into the terminal ileum. I did visualize the mucosa at the terminal aspect of TI and it appeared totally normal. Endoscopic diagnosis 1. Very tortuous colon 2. Grade 2 hemorrhoids Post-procedure Plan for aftercare: 1. Await histopathology 2. [id number] fiber supplementation for regular stools. Disposition: PACU
--- NOTE | 2022-08-08 11:59 | SUR.PHASEII ---
all belongings with patient. diaper given to patient due to frequent, ongoing diarrhea. WC to ER entrance to [place] (friend)
== END 2022-08-08 12:08 | disposition home or self-care (01) ==
PROVIDERS: PCP Family Medicine; Referring Provider Internal Medicine Gastroenterology; Visit Provider Internal Medicine Gastroenterology
PROC: 0DJD8ZZ Inspection of Lower Intestinal Tract, Via Natural or Artificial Opening Endoscopic (ICD-10-PCS; CPT 45378; principal; 2022-08-08 10:00)
DX: R19.7 Diarrhea, unspecified (principal); K64.1 Second degree hemorrhoids
CPT/HCPCS: 45380; J2250; J2704; J3010

== ENCOUNTER → 2022-08-29 11:33 | Outpatient (CLI) | payer MEDICARE, OTHER, SELFPAY ==
--- NOTE | 2022-08-29 | DI.RAD.S_ITS ---
PROCEDURE: XR ABDOMEN 3V INDICATIONS: diarrhea TECHNIQUE: One view chest and two views of the abdomen were acquired. COMPARISON: None. FINDINGS: Surgical changes and devices: T12 kyphoplasty. Cholecystectomy. Chest: Lungs are clear. Heart size is normal. No pleural effusions. No pneumoperitoneum. Abdomen: Bowel gas pattern is normal. No suspicious calcifications. Visualized solid organ contours appear normal. Moderate colonic stool load. Bones: Unremarkable. IMPRESSION: Moderate colonic stool load. No evidence of obstruction. Dictated by: Erick Caldwell M.D. on 08/29/2022 at 12:34 Approved by: Erick Caldwell M.D. on 08/29/2022 at 12:35
== END ==
PROVIDERS: PCP Family Medicine; Referring Provider Registered Nurse; Visit Provider Registered Nurse
DX: R19.7 Diarrhea, unspecified (principal)
CPT/HCPCS: 74021

== ENCOUNTER → 2023-03-15 14:05 | Outpatient (CLI) | payer MEDICARE, OTHER, SELFPAY ==
--- NOTE | 2023-03-15 | DI.MG.S_ITS ---
BILATERAL DIGITAL SCREENING MAMMOGRAM 3D/2D WITH CAD: 03/15/2023 CLINICAL: Routine screening. Family history of breast cancer. Comparison is made to exams dated: 03/10/2022 mammogram, 02/08/2021 mammogram, and 02/06/2020 mammogram - [facility]. There are scattered areas of fibroglandular density in both breasts (category b / 25%-50% glandular tissue). Current study was also evaluated with a Computer Aided Detection (CAD) system. No significant masses, calcifications, or other findings are seen in either breast. There has been no significant interval change. IMPRESSION: NEGATIVE There is no mammographic evidence of malignancy. A 1 year screening mammogram is recommended. Based on the Tyrer Cuzick model (a risk assessment model) the patient's lifetime risk is 6.8% and her 10 year risk is 0.0%. According to the ACR, ACS, and NCCN guidelines, an annual breast MRI exam along with mammogram is recommended if the patient's lifetime risk is 20% or greater. This exam was interpreted at Station ID: [id number]. NOTE: For mammograms, a report in lay terms will be sent to the patient. Approximately 15% of breast malignancies will not be visualized mammographically. In the management of a palpable breast mass, a negative mammogram must not discourage biopsy of a clinically suspicious lesion. Electronically Signed By: Constantino garcia/mallory:03/19/2023 13:54:44 letter sent: Normal Exam ACR BI-RADS Category 1: Negative 3341F
== END ==
PROVIDERS: PCP Registered Nurse; Referring Provider Registered Nurse; Visit Provider Registered Nurse
DX: Z12.31 Encounter for screening mammogram for malignant neoplasm of breast (principal)
CPT/HCPCS: 77063; 77067

== ENCOUNTER → 2023-09-07 09:58 | Outpatient (CLI) | payer MEDICARE, OTHER, SELFPAY ==
--- NOTE | 2023-09-07 09:59 | DI.RAD.S_ITS ---
Bone Density Report Name: SEBAS SOLIS Age: 78 Sex: Female Ethnicity: White Date of : 1945 Indication: osteopenia; monitoring treatment; Referring Provider: GARY AVLARENGA Study: Bone densitometry was performed. Exam Date: September 07, 2023 Accession number: [id number] Bone Density: Region BMD T-score Z-score Classification AP Spine(L2, L3) 1.079 0.2 2.8 Normal Femoral Neck (Left) 0.553 -2.7 -0.4 Osteoporosis Total Hip (Left) 0.732 -1.7 0.3 Osteopenia Femoral Neck (Right) 0.543 -2.8 -0.5 Osteoporosis Total Hip (Right) 0.744 -1.6 0.4 Osteopenia Total Hip Mean 0.738 -1.7 0.4 Osteopenia World Health Organization criteria for BMD impression classify patients as: Normal (T-score at or above -1.0), Osteopenia (T-score between -1.0 and -2.5), or Osteoporosis (T-score at or below -2.5). 10-year Fracture Risk: FRAX not reported because: Some T-score for Spine Total or Hip Total or Femoral Neck at or below -2.5 Treated for osteoporosis Previous Exams: -- Region Exam Age BMD T-score BMD Change BMD Change Date g/cm2 vs Baseline vs Previous -- AP Spine (L2-L3) 09/07/2023 78 1.079 0.2 -0.038 (-3.4%)# -0.038 (-3.4%)# 01/13/2022 76 1.117 0.5 Total Hip(Left) 09/07/2023 78 0.732 -1.7 -0.022 (-2.9%)# -0.022 (-2.9%)# 01/13/2022 76 0.754 -1.5 Total Hip(Right) 09/07/2023 78 0.744 -1.6 -0.026 (-3.3%)# -0.026 (-3.3%)# 01/13/2022 76 0.769 -1.4 -- *Denotes significance at 95% confidence level, LSC for AP Spine = 0.022 g/cm2, LSC for Total Hip = 0.027 g/cm2 # Denotes dissimilar scan types or analysis methods Impression: The patient has osteoporosis, based on the Right Femoral Neck T-score. No significant bone loss was observed. Discussion: PATIENT UNDER TREATMENT WITH NO SIGNIFICANT BMD LOSS SINCE LAST EXAM. In an untreated patient, BMD typically declines with age. A lack of decline or gain is usually a sign that treatment is efficacious and fracture risk is reduced. It is important to ask patients whether they are taking their medications and to encourage continued and appropriate compliance with their osteoporosis therapies to reduce fracture risk. It is also important to review their risk factors and encourage appropriate calcium and vitamin D intakes, exercise, fall prevention and other lifestyle measures. Follow-Up: Consider a repeat BMD and Vertebral Fracture Assessment (VFA) exam in 2 years or sooner if medically necessary, to reassess this patient's status. Reported by: LINDA BERMUDEZ M.D. on 09/07/2023 10:30:00 AM.
== END ==
LOC: RAD 09:59
PROVIDERS: PCP Registered Nurse; Referring Provider Registered Nurse; Visit Provider Registered Nurse
DX: Z78.0 Asymptomatic menopausal state (principal); M81.0 Age-related osteoporosis without current pathological fracture; Z79.83 Long term (current) use of bisphosphonates
CPT/HCPCS: 77080

== ENCOUNTER → 2024-03-19 15:25 | Outpatient (CLI) | payer MEDICARE, OTHER, SELFPAY ==
--- NOTE | 2024-03-19 15:27 | DI.MG.S_ITS ---
BILATERAL DIGITAL SCREENING MAMMOGRAM 3D/2D WITH CAD: 03/19/2024 CLINICAL: Routine screening. Family history of breast cancer. Comparison is made to exams dated: 03/15/2023 mammogram, 03/10/2022 mammogram, 02/08/2021 mammogram, 02/06/2020 mammogram, and 02/04/2019 mammogram - [facility]. There are scattered areas of fibroglandular density (category b / 25%-50% glandular tissue). Current study was also evaluated with a Computer Aided Detection (CAD) system. There are benign post operative findings in both breasts. No significant masses, calcifications, or other findings are seen in either breast. There has been no significant interval change. IMPRESSION: BENIGN There is no mammographic evidence of malignancy. A 1 year screening mammogram is recommended. Based on the Tyrer Cuzick model (a risk assessment model) the patient's lifetime risk is 6.0% and her 10 year risk is 0.0%. According to the ACR, ACS, and NCCN guidelines, an annual breast MRI exam along with mammogram is recommended if the patient's lifetime risk is 20% or greater. This exam was interpreted at Station ID: [id number]. NOTE: For mammograms, a report in lay terms will be sent to the patient. Approximately 15% of breast malignancies will not be visualized mammographically. In the management of a palpable breast mass, a negative mammogram must not discourage biopsy of a clinically suspicious lesion. Electronically Signed By: Casandra Toro M.D., Ph.D. miriam/mallory:03/20/2024 09:36:04 letter sent: Normal Exam ACR BI-RADS Category 2: Benign 3342F
== END ==
PROVIDERS: PCP Registered Nurse; Referring Provider Registered Nurse; Visit Provider Registered Nurse
DX: Z12.31 Encounter for screening mammogram for malignant neoplasm of breast (principal); Z80.3 Family history of malignant neoplasm of breast
CPT/HCPCS: 77063; 77067

== ENCOUNTER → 2025-04-23 08:20 | Outpatient (CLI) | payer MEDICARE, OTHER, SELFPAY ==
--- NOTE | 2025-04-23 08:22 | DI.MG.S_ITS ---
MM screening mammo BI: 04/23/2025. BI-RADS: 1 CLINICAL: 80-year old female for bilateral screening mammogram. Tyrer-Cuzick lifetime risk of 1.3%. Current reported family history of breast cancer: maternal grandmother, sister, maternal aunt and second maternal aunt. PRIOR EXAMS 03/19/2024, 03/15/2023, 03/10/2022, 02/08/2021. MAMMOGRAPHY TECHNIQUE: 2D and 3D (tomosynthesis) digital mammographic views obtained, with additional images as needed for full coverage. Current study was also evaluated with a Computer Aided Detection (CAD) system. DENSITY B. There are scattered areas of fibroglandular density. MAMMOGRAPHY FINDINGS Bilateral: No suspicious mass, asymmetry, microcalcification, or other abnormality seen. IMPRESSION: * No evidence of malignancy. RECOMMENDATIONS Bilateral * Annual screening mammography. OVERALL ASSESSMENT CATEGORY BI-RADS-1: Negative. The [employer] recommends annual screening mammography beginning at age 40 for women with average risk of breast cancer. ELECTRONICALLY SIGNED: Emma Patel M.D. on 04/23/2025 at 10:32:18 PM PT Interpreting Station ID: [id number]
== END ==
LOC: MAMMO 08:21
PROVIDERS: PCP Registered Nurse; Referring Provider Registered Nurse; Visit Provider Registered Nurse
DX: Z12.31 Encounter for screening mammogram for malignant neoplasm of breast (principal); Z80.3 Family history of malignant neoplasm of breast
CPT/HCPCS: 77063; 77067